=== PATIENT | female | born 1935 | race Caucasian/White ===

== ENCOUNTER 2017-10-19 06:27 | Inpatient (IN) | payer OTHER ==
--- NOTE | 2017-10-19 07:17 | PDOC ---
History of Present Illness - General Chief Complaint: Cold Symptoms Stated Complaint: COUGH X 3 DAYS Time Seen by Provider: 10/19/17 07:11 History Source: Patient, Old Records Exam Limitations: No Limitations - History of Present Illness Initial Comments: 10/19/17 07:13 82 year old female with past medical history of hypertension, coronary disease status post stent presents to the emergency department for cough for one week. Patient denies any fevers or chills or chest pain short of breath. She does have report a productive cough that was initially clearish and started to come slightly darkish in color. The patient came from [facility] to be evaluated for rule out pneumonia. Past History - Past Medical History Allergies/Adverse Reactions: Allergies Allergy/AdvReac Type Severity Reaction Status Date / Time Antihistamines - Ethanolamine Allergy Verified 10/19/17 06:32 Penicillins Allergy Verified 10/19/17 06:32 sulfur [From Sulfur-8] Allergy Verified 10/19/17 06:32 Home Medications: Ambulatory Orders Atorvastatin Ca [Lipitor] 10 mg PO HS 08/29/16 Candesartan Cilexetil [Atacand -] 4 mg PO DAILY 08/29/16 Clopidogrel Bisulfate [Plavix -] 75 mg PO DAILY 08/29/16 Meclizine HCl [Antivert -] 12.5 - 25 mg PO TID PRN #20 tablet 08/29/16 Metoprolol Succinate [Toprol XL -] 25 mg PO DAILY 08/29/16 Cancer: Yes (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 HEAD, EYES, EARS, NOSE AND THROAT: No change in vision. No ear pain or discharge. No sore throat. CARDIOVASCULAR: No chest pain or shortness of breath. RESPIRATORY: No wheezing, or hemoptysis. +cough GASTROINTESTINAL: No abdominal pain, nausea, vomiting, diarrhea, or decreased PO intolerance. GENITOURINARY: No dysuria, frequency, or change in urination. MUSCULOSKELETAL: No joint or muscle swelling or pain. No neck or back pain. SKIN: No rash NEUROLOGIC: No headache, vertigo, loss of consciousness, or change in strength/ sensation. ENDOCRINE: No increased thirst. No abnormal weight change. HEMATOLOGIC/LYMPHATIC: No anemia, easy bleeding, or history of blood clots. ALLERGIC/IMMUNOLOGIC: No hives or skin allergy. *Physical Exam - Vital Signs Last Vital Signs Temp Pulse Resp BP Pulse Ox 99 F 83 18 145/82 99 10/19/17 06:35 10/19/17 06:35 10/19/17 06:35 10/19/17 06:35 10/19/17 06:35 - Physical Exam Comments: 10/19/17 07:17 GENERAL: Awake, alert, and fully oriented, in no acute distress. HEAD: No signs of trauma EYES: PERRLA, EOMI, sclera anicteric, conjunctiva clear ENT: Auricles normal inspection, hearing grossly normal, nares patent, oropharynx clear without exudates. NECK: Normal ROM, supple, no lymphadenopathy, JVD, or masses LUNGS: Breath sounds equal, clear to auscultation bilaterally. No wheezes, and no crackles. Coughing throughout the exam. HEART: Regular rate and rhythm, normal S1 and S2, no murmurs, rubs or gallops ABDOMEN: Soft, nontender, normoactive bowel sounds. No guarding, no rebound. No masses EXTREMITIES: Normal range of motion, no edema. No clubbing or cyanosis. No cords, erythema, or tenderness NEUROLOGICAL: Cranial nerves II through XII grossly intact. Normal speech, normal gait SKIN: Warm, Dry, normal turgor, no rashes or lesions noted. Heart Score/ECG Review #1 ECG reviewed & interpreted by me at: 08:20 10/19/17 08:22 NSR 87, LAFB, no std/raegan, QTC 418 msec ED Treatment Course - LABORATORY CBC & Chemistry Diagram: 10/19/17 08:21 10/19/17 08:21 - RADIOLOGY Radiology Studies Ordered: Category Date Time Status CHEST PA & LAT [RAD] Stat Radiology 10/19/17 07:11 Ordered Medical Decision Making - Medical Decision Making 10/19/17 07:17 Vital Signs Temp Pulse Resp BP Pulse Ox 99 F 83 18 145/82 99 10/19/17 06:35 10/19/17 06:35 10/19/17 06:35 10/19/17 06:35 10/19/17 06:35 The patient is overall well-appearing and nontoxic-appearing. Differential includes viral syndrome versus bronchitis. We'll however, need to rule out pneumonia. Chest x-ray, labs and reassess. 10/19/17 08:45 CBC, BMP 10/19/17 08:21 10/19/17 08:21 CMP Sodium 127 mmol/L (136-145) L 10/19/17 08:21 Potassium 4.1 mmol/L (3.5-5.1) 10/19/17 08:21 Chloride 93 mmol/L (98-107) L 10/19/17 08:21 Carbon Dioxide 25 mmol/L (22-28) 10/19/17 08:21 Anion Gap 9 (8-16) 10/19/17 08:21 BUN 15 mg/dl (7-18) 10/19/17 08:21 Creatinine 0.7 mg/dl (0.6-1.3) 10/19/17 08:21 Creat Clearance w eGFR > 60 (>60) 10/19/17 08:21 Random Glucose 98 mg/dl (74-106) 10/19/17 08:21 Calcium 9.1 mg/dl (8.4-10.2) 10/19/17 08:21 Total Bilirubin 1.1 mg/dl (0.2-1.0) H 10/19/17 08:21 AST 23 U/L (10-42) 10/19/17 08:21 ALT 17 U/L (10-40) 10/19/17 08:21 Alkaline Phosphatase 54 U/L (32-92) 10/19/17 08:21 Total Protein 6.6 g/dl (6.4-8.3) 10/19/17 08:21 Albumin 3.6 g/dl (3.5-5.0) 10/19/17 08:21 Chest xray reviewed: Right lower lobe infiltrate Patient's symptoms are consistent with Pneumonia PORT score: Risk Class IV, 8.2-9.3% mortality. Hospitalization recommended based on risk. Given allergy to penicillin and sulfa, will initiate levaquin. Blood cultures ordered and obtained. 10/19/17 09:06 I had updated patient's son Lewis Mayahue [phone], who is a physician. He is aware and agreeable to our plan for admission. 10/19/17 09:[address] Mooney. Accepted to med/surg admission. *DC/Admit/Observation/Transfer Diagnosis at time of Disposition: Pneumonia Qualifiers: Pneumonia type: due to unspecified organism Laterality: right Lung location: lower lobe of lung Qualified Code(s): J18.1 - Lobar pneumonia, unspecified organism - Discharge Dispostion Condition at time of disposition: Stable Admit: Yes - Referrals - Patient Instructions - Post Discharge Activity
[2017-10-19] MEDS ORDERED: LEVOFLOXACIN 500 MG IVPB 500 MG/100 ML BAG IVPB ONE ×2 (08:06→08:25)
[2017-10-19 08:27] LABS: BASO % 0.3 % (0-2.0); EOS % 0.2 % (0-4.5); MCH 30.7 pg (25.7-33.7); MCHC 33.5 g/dl (32.0-36.0); MEAN CELL VOLUME 91.8 fl (80-96); MEAN PLT VOLUME 7.9 fl (7.5-11.1); NEUT % 78.8 % (42.8-82.8); PLATELET COUNT 295 K/MM3 (134-434); WHITE BLOOD COUNT 11.8 K/mm3 (4.0-10.8)
[2017-10-19] MEDS ORDERED: LEVOFLOXACIN 750 MG IVPB 750 MG/150 ML BAG IVPB ONE ×2 (08:27)
[2017-10-19 08:42] LABS: ALBUMIN 3.6 g/dl (3.5-5.0); ALK PHOS 54 U/L (32-92); ANION GAP 9 (8-16); BILIRUBIN,TOTAL 1.1 mg/dl (0.2-1.0); CALCIUM 9.1 mg/dl (8.4-10.2); CO2 25 mmol/L (22-28); CREATININE 0.7 mg/dl (0.6-1.3); GLUCOSE,RANDOM 98 mg/dl (74-106); SGOT/AST 23 U/L (10-42); SGPT/ALT 17 U/L (10-40); TOT PROT 6.6 g/dl (6.4-8.3)
[2017-10-19 09:00] LABS: ACTIVATED PTT 28.6 SECONDS (24.0-38.9)
[2017-10-19 09:05] LABS: INR 1.29 (0.82-1.09); PROTHROMBIN TIME (PATIENT) 14.4 SEC (10.2-13.0)
--- NOTE | 2017-10-19 10:32 | HP ---
CHIEF COMPLAINT:cough PCP: [facility] HISTORY OF PRESENT ILLNESS: 82yo F with PMH NHL s/p chemo and Rtx (completed 2007) and CAD s/p stent presented to the ER wtih productive cough x5 days. Initially was clear sputum and turned to grayish yesterday. assoc with subjective fevers (took temp at home was 100) and rhinorhea. no other assoc symptoms. lives in assisted living so always has sick contacts. denies CP, SOB, chills, night sweats, N/V/C/D, sinus tenderness, ear fullness or ringing in the ears ambulates with cane ER course was notable for: (1) (2) (3) Recent Travel:none PAST MEDICAL HISTORY:as above PAST SURGICAL HISTORY:as above Social History: Smoking:denies Alcohol:1 glass/month Drugs: denies Family History:not contributory Allergies Antihistamines - Ethanolamine Allergy (Verified 10/19/17 06:32) Penicillins Allergy (Verified 10/19/17 06:32) sulfur [From Sulfur-8] Allergy (Verified 10/19/17 06:32) HOME MEDICATIONS: Home Medications Medication Instructions Recorded Atorvastatin Ca [Lipitor] 10 mg PO HS 08/29/16 Candesartan Cilexetil [Atacand -] 16 mg PO DAILY 08/29/16 Clopidogrel Bisulfate [Plavix -] 75 mg PO DAILY 08/29/16 Ascorbic Acid [Vitamin C] 1,000 mg PO DAILY 10/19/17 Aspirin 81 mg PO DAILY 10/19/17 Cholecalciferol (Vitamin D3) 2,000 unit PO DAILY 10/19/17 [Vitamin D] Metoprolol Tartrate 12.5 mg PO BID 10/19/17 REVIEW OF SYSTEMS CONSTITUTIONAL: fever Absent: , chills, diaphoresis, generalized weakness, malaise, loss of appetite, weight change HEENT: Absent: rhinorrhea, nasal congestion, throat pain, throat swelling, difficulty swallowing, mouth swelling, ear pain, eye pain, visual changes CARDIOVASCULAR: Absent: chest pain, syncope, palpitations, irregular heart rate, lightheadedness , peripheral edema RESPIRATORY: cough, Absent: shortness of breath, dyspnea with exertion, orthopnea, wheezing, stridor, hemoptysis GASTROINTESTINAL: Absent: abdominal pain, abdominal distension, nausea, vomiting, diarrhea, constipation, melena, hematochezia GENITOURINARY: Absent: dysuria, frequency, urgency, hesitancy, hematuria, flank pain, genital pain MUSCULOSKELETAL: Absent: myalgia, arthralgia, joint swelling, back pain, neck pain SKIN: Absent: rash, itching, pallor HEMATOLOGIC/IMMUNOLOGIC: Absent: easy bleeding, easy bruising, lymphadenopathy, frequent infections ENDOCRINE: Absent: unexplained weight gain, unexplained weight loss, heat intolerance, cold intolerance NEUROLOGIC: Absent: headache, focal weakness or paresthesias, dizziness, unsteady gait, seizure, mental status changes, bladder or bowel incontinence PSYCHIATRIC: Absent: anxiety, depression, suicidal or homicidal ideation, hallucinations. PHYSICAL EXAMINATION Vital Signs - 24 hr 10/19/17 06:35 Temperature 99 F Pulse Rate 83 Respiratory 18 Rate Blood Pressure 145/82 O2 Sat by Pulse 99 Oximetry (%) GENERAL: Awake, alert, and fully oriented, in no acute distress. HEAD: Normal with no signs of trauma. EYES: Pupils equal, round and reactive to light, extraocular movements intact, sclera anicteric, conjunctiva clear. No lid lag. EARS, NOSE, THROAT: Ears normal, nares patent, oropharynx clear without exudates. Moist mucous membranes. no sinus tenderness. no pharynx erythema or exudate NECK: Normal range of motion, supple without lymphadenopathy, JVD, or masses. LUNGS: decreased breath sounds R base. Breath sounds equal, clear to auscultation bilaterally. No wheezes, and no crackles. No accessory muscle use. HEART: Regular rate and rhythm, normal S1 and S2 without murmur, rub or gallop. ABDOMEN: Soft, nontender, not distended, normoactive bowel sounds, no guarding, no rebound, no masses. No hepatomegaly or splenomegaly. MUSCULOSKELETAL: Normal range of motion at all joints. No bony deformities or tenderness. No CVA tenderness. UPPER EXTREMITIES: 2+ pulses, warm, well-perfused. No cyanosis. No clubbing. No peripheral edema. LOWER EXTREMITIES: 2+ pulses, warm, well-perfused. No calf tenderness. No peripheral edema. LLE soft swelling above medial malleoulus. soft NEUROLOGICAL: Cranial nerves II-XII intact. Normal speech. Normal gait. PSYCHIATRIC: Cooperative. Good eye contact. Appropriate mood and affect. SKIN: Warm, dry, normal turgor, no rashes or lesions noted, normal capillary refill. Laboratory Results - last 24 hr 10/19/17 10/19/17 10/19/17 08:21 08:21 08:21 WBC 11.8 H RBC 4.23 Hgb 13.0 Hct 38.9 MCV 91.8 MCH 30.7 MCHC 33.5 RDW 12.0 Plt Count 295 MPV 7.9 Neutrophils % 78.8 Lymphocytes % 8.7 Monocytes % 12.0 H Eosinophils % 0.2 Basophils % 0.3 PT with INR 14.4 H INR 1.29 H PTT (Actin FS) 28.6 Sodium 127 L Potassium 4.1 Chloride 93 L Carbon Dioxide 25 Anion Gap 9 BUN 15 Creatinine 0.7 Creat Clearance w eGFR > 60 Random Glucose 98 Lactic Acid Calcium 9.1 Total Bilirubin 1.1 H AST 23 ALT 17 Alkaline Phosphatase 54 Troponin I Total Protein 6.6 Albumin 3.6 10/19/17 10/19/17 08:21 08:21 WBC RBC Hgb Hct MCV MCH MCHC RDW Plt Count MPV Neutrophils % Lymphocytes % Monocytes % Eosinophils % Basophils % PT with INR INR PTT (Actin FS) Sodium Potassium Chloride Carbon Dioxide Anion Gap BUN Creatinine Creat Clearance w eGFR Random Glucose Lactic Acid 0.8 Calcium Total Bilirubin AST ALT Alkaline Phosphatase Troponin I < 0.03 L Total Protein Albumin CXR RLL infiltrate ASSESSMENT/PLAN: 82yo F with PMH HTN, CAD s/p stent, presented with productive cough 1. RLL PNA- medicine admission. high Curb score. started on Levaquin 500mg IV. will cont additional 24H. supplemental oxygen as needed to maintain spO2 >90% check ulegionella, strep, Cx 2. Hyponatremia- likely dehydration. check ulegionella. give gentle hydration. 3. CAD s/p stent- no signs of acs. cont asa/plavix/metoprolol/statin 4. NHL- s/p chemo and Rtx. has LLE mass soft, stable per pt 5. HTN- above goal. re-start metoprolol. will re-start acei if remains elevated , NF here will need to start similiar agent. titrate as needed to optimize BP. 6. DVT ppx- lovenox 7. case spoke with son present at bedside. all questions answered. verbalized understanding and agreement with plan Visit type - Emergency Visit Emergency Visit: Yes ED Registration Date: 10/19/17 Care time: The patient presented to the Emergency Department on the above date and was hospitalized for further evaluation of their emergent condition. - New Patient This patient is new to me today: No - Critical Care Critical Care patient: No
[2017-10-19] MEDS ORDERED: ACETAMINOPHEN 325 MG TABLET (FP) PO PRN (10:34)
[2017-10-19] MEDS ORDERED: METOPROLOL SUCCINATE 25 MG TAB.SR.24H (FP) PO SCH (10:45)
[2017-10-19] MEDS ORDERED: SODIUM CHLORIDE 1,000 ML IV SCH (10:45)
[2017-10-19] MEDS ORDERED: CLOPIDOGREL BISULFATE 75 MG TABLET (FP) PO SCH (10:45)
[2017-10-19 12:03] VITALS: BMI 20.9
[2017-10-19] MEDS: ENOXAPARIN NA (PORCINE) 40 MG/0.4 ML DISP.SYRIN SQ SCH (12:47)
[2017-10-19] MEDS: ASPIRIN 81 MG CHEWABLE TABLETS PO SCH ×3 (12:48→21:10)
[2017-10-19] MEDS: METOPROLOL SUCCINATE 25 MG TAB.SR.24H (FP) PO ONE ×2 (12:50→17:51)
[2017-10-19 14:31] LABS: URINE BILIRUBIN Negative (NEGATIVE); URINE GLUCOSE (UA) Negative (NEGATIVE); URINE KETONE Trace (NEGATIVE); URINE NITRITE Negative (NEGATIVE); URINE PROTEIN Negative (NEGATIVE); URINE UROBILINOGEN 0.2 (0.2-1.0)
[2017-10-19 14:32] LABS: URINE APPEARANCE CLOUDY; URINE BLOOD 1+ (NEGATIVE); URINE COLOR AMBER; URINE LEUK ESTERASE 2+ (NEGATIVE)
[2017-10-19 14:52] LABS: URINE WBC 50-80 (0-5)
[2017-10-19 17:02] LABS: MONO # 1.4 #; NEUT # 9.4 # (42.8-82.8)
[2017-10-19] MEDS: ATORVASTATIN CA 10 MG TABLET (FP) PO SCH (21:10)
[2017-10-19] MEDS: METOPROLOL SUCCINATE 25 MG TAB.SR.24H (FP) PO SCH (21:10)
[2017-10-19] MEDS: CLOPIDOGREL BISULFATE 75 MG TABLET (FP) PO SCH (21:10)
[2017-10-20] MEDS: guaiFENesin 200 MG/10 ML 10 ML UNIT-DOSE CUPS PO PRN ×2 (01:49→21:17)
[2017-10-20 10:04] LABS: BASO % 0.2 % (0-2.0); MCH 31.2 pg (25.7-33.7); MCHC 33.2 g/dl (32.0-36.0); MEAN CELL VOLUME 93.9 fl (80-96); MEAN PLT VOLUME 7.6 fl (7.5-11.1); NEUT % 78.3 % (42.8-82.8); PLATELET COUNT 302 K/MM3 (134-434); RDW 12.1 % (11.6-15.6); WHITE BLOOD COUNT 13.7 K/mm3 (4.0-10.8)
[2017-10-20] MEDS: ASCORBIC ACID 500 MG TABLET (FP) PO SCH (10:11)
[2017-10-20] MEDS: METOPROLOL SUCCINATE 25 MG TAB.SR.24H (FP) PO SCH ×2 (10:13→21:17)
[2017-10-20] MEDS: ENOXAPARIN NA (PORCINE) 40 MG/0.4 ML DISP.SYRIN SQ SCH (10:15)
[2017-10-20 10:20] LABS: ANION GAP 10 (8-16); CALCIUM 8.4 mg/dl (8.4-10.2); CO2 22 mmol/L (22-28); CREATININE 0.7 mg/dl (0.6-1.3); GLUCOSE,RANDOM 81 mg/dl (74-106)
[2017-10-20 10:25] LABS: LYMPH # 1.4 # (8-40); MONO # 1.6 #; NEUT # 10.7 # (42.8-82.8)
[2017-10-20] MEDS: LEVOFLOXACIN 500 MG IVPB 500 MG/100 ML BAG IVPB SCH (10:39)
[2017-10-20] MEDS ORDERED: BENZOCAINE/MENTH/CETYLPYRD CL 1 EACH LOZENGE MM PRN (11:37)
--- NOTE | 2017-10-20 11:41 | PN ---
Physical Exam: SUBJECTIVE: Patient seen and examined Reports feeling better,in frequent cough with yellow/galloway sputum, denies cp sob or palpitations. OBJECTIVE: Vital Signs Period Temp Pulse Resp BP Sys/Fuentes Pulse Ox Last 24 Hr 98.6 F-100 F 83-88 18-18 124-138/56-68 92-96 GENERAL: The patient is awake, alert, and fully oriented, in no acute distress. HEAD: Normal with no signs of trauma. NECK: Trachea midline, full range of motion, supple. LUNGS: Breath sounds equal, ronchi, no wheezing, no accessory muscle use. HEART: Regular rate and rhythm, S1, S2 without murmur, rub or gallop. ABDOMEN: Soft, nontender, nondistended, normoactive bowel sounds, no guarding, no rebound, no hepatosplenomegaly, no masses. EXTREMITIES: 2+ pulses, warm, well-perfused, no edema. LLE mass soft, NEUROLOGICAL: Cranial nerves II through XII grossly intact. Normal speech, gait not observed. PSYCH: Normal mood, normal affect. SKIN: Warm, dry, normal turgor, no rashes or lesions noted Laboratory Results - last 24 hr 10/19/17 10/19/17 10/20/17 08:21 14:29 06:08 WBC 13.7 H RBC 3.96 Hgb 12.3 Hct 37.1 MCV 93.9 MCH 31.2 MCHC 33.2 RDW 12.1 Plt Count 302 MPV 7.6 Neutrophils % 78.3 Lymphocytes % 10.1 Monocytes % 11.4 H Eosinophils % 0.0 D Basophils % 0.2 Sodium Potassium Chloride Carbon Dioxide Anion Gap BUN Creatinine Random Glucose Lactic Acid 0.8 Calcium Urine Color Maddy Urine Appearance Cloudy Urine pH 7.0 Ur Specific [place] 1.010 Urine Protein Negative Urine Glucose (UA) Negative Urine Ketones Trace Urine Blood 1+ H Urine Nitrite Negative Urine Bilirubin Negative Urine Urobilinogen 0.2 Ur Leukocyte Esterase 2+ H Urine RBC 3-5 Urine WBC 50-80 Ur Epithelial Cells Rare 10/20/17 06:08 WBC RBC Hgb Hct MCV MCH MCHC RDW Plt Count MPV Neutrophils % Lymphocytes % Monocytes % Eosinophils % Basophils % Sodium 130 L Potassium 3.9 Chloride 98 Carbon Dioxide 22 Anion Gap 10 BUN 11 D Creatinine 0.7 Random Glucose 81 Lactic Acid Calcium 8.4 Urine Color Urine Appearance Urine pH Ur Specific [place] Urine Protein Urine Glucose (UA) Urine Ketones Urine Blood Urine Nitrite Urine Bilirubin Urine Urobilinogen Ur Leukocyte Esterase Urine RBC Urine WBC Ur Epithelial Cells Active Medications Generic Name Dose Route Start Last Admin Trade Name Freq PRN Reason Stop Dose Admin Acetaminophen 650 mg 10/19/17 10:34 Tylenol - PO Q4H PRN FEVER OR PAIN Albuterol/Ipratropium 1 amp 10/20/17 14:00 Duoneb - NEB TIDR MARLINE Ascorbic Acid 1,000 mg 10/20/17 10:00 10/20/17 10:11 Vitamin C - PO 1,000 mg DAILY MARLINE Administration Aspirin 81 mg 10/19/17 22:00 10/19/17 21:10 Asa - PO 81 mg HS MARLINE Administration Atorvastatin Calcium 10 mg 10/19/17 22:00 10/19/17 21:10 Lipitor - PO 10 mg HS MARLINE Administration Clopidogrel Bisulfate 75 mg 10/19/17 22:00 10/19/17 21:10 Plavix - PO 75 mg HS MARLINE Administration Enoxaparin Sodium 40 mg 10/19/17 10:45 10/20/17 10:15 Lovenox - SQ 40 mg DAILY MARLINE Administration Guaifenesin 10 ml 10/20/17 01:30 10/20/17 01:49 Robitussin - PO 10 ml Q6H PRN Administration COUGH Levofloxacin 500 mg in 100 mls @ 100 mls/hr 10/20/17 10:45 10/20/17 10:39 Levaquin 500 Mg Premixed Ivpb - IVPB 100 mls/hr ONCE MARLINE Administration Metoprolol Succinate 12.5 mg 10/19/17 22:00 10/20/17 10:13 Toprol Xl - PO 12.5 mg BID MARLINE Administration * Imaging CXR RLL infiltrate BC preliminary negative Influenza ruled out Urine culture pending ASSESSMENT/PLAN: This is an 82yo F with PMH NHL s/p chemo and Rtx (completed 2007) and CAD s/p stent presented to the ER wtih productive cough x5 days. Admitted with pneumonia. *RLL PNA-laryngitis - will cont on Levaquin - afebrile, with mild leukocytosis - BC preliminary negative - flu ruled out -ordered Cepacol Lozenges -will cont on Neb tx - encouraged to use incentive Spirometer - OOB and ambulate as tolerated - O2 PRN - will Rpt cxr in am - r/o strep throat - f/u on urine legionella *Hyponatremia- likely due to dehydration. - Na improving Na 127.130 - will cont on IV hydration * CAD s/p stent- no signs of acs - will cont asa/plavix/metoprolol/statin * NHL- s/p chemo and Rtx. -has LLE mass soft, stable per pt - out pt hem/onc f/u *HTN-BP controlled - will cont on BB, Atacand ( NF) - will monitor BP closely, if BP goes up will start on similar agent ARB *DVT ppx- lovenox * F/E/N: Will cont on IVF and Heart healthy diet Updated plan of care with son via phone. Dispo: Anticipate DC back to [facility] in 1-2 days. Visit type - Emergency Visit Emergency Visit: Yes ED Registration Date: 10/19/17 Care time: The patient presented to the Emergency Department on the above date and was hospitalized for further evaluation of their emergent condition. - New Patient This patient is new to me today: Yes Date on this admission: 10/20/17 - Critical Care Critical Care patient: No
[2017-10-20] MEDS: ALBUTEROL SO4 2.5/IPRATROPIUM 0.5 INH SOL 3 ML VIAL.NEB. NEB SCH ×2 (15:05→21:17)
[2017-10-20 20:26] LABS: MAGNESIUM 1.9 mg/dL (1.8-2.4); PHOSPHOROUS 2.5 mg/dl (2.5-4.6)
[2017-10-20] MEDS: ATORVASTATIN CA 10 MG TABLET (FP) PO SCH (21:16)
[2017-10-20] MEDS: ASPIRIN 81 MG CHEWABLE TABLETS PO SCH (21:16)
[2017-10-20] MEDS: CLOPIDOGREL BISULFATE 75 MG TABLET (FP) PO SCH (21:17)
[2017-10-21] MEDS: ALBUTEROL SO4 2.5/IPRATROPIUM 0.5 INH SOL 3 ML VIAL.NEB. NEB SCH ×3 (06:38→21:33)
[2017-10-21] MEDS ORDERED: REFRIGERATED ANITBIOTICS ONE ×2 (09:32→11:15)
[2017-10-21] MEDS: ENOXAPARIN NA (PORCINE) 40 MG/0.4 ML DISP.SYRIN SQ SCH (09:35)
[2017-10-21] MEDS: ASCORBIC ACID 500 MG TABLET (FP) PO SCH (09:35)
[2017-10-21] MEDS: METOPROLOL SUCCINATE 25 MG TAB.SR.24H (FP) PO SCH ×2 (09:35→21:30)
[2017-10-21 10:01] LABS: BASO % 0.2 % (0-2.0); EOS % 0.1 % (0-4.5); MCH 31.1 pg (25.7-33.7); MCHC 33.9 g/dl (32.0-36.0); MEAN CELL VOLUME 91.7 fl (80-96); MEAN PLT VOLUME 7.9 fl (7.5-11.1); NEUT % 77.3 % (42.8-82.8); PLATELET COUNT 310 K/MM3 (134-434); RDW 11.9 % (11.6-15.6); WHITE BLOOD COUNT 11.3 K/mm3 (4.0-10.8)
[2017-10-21 10:16] LABS: ANION GAP 9 (8-16); CALCIUM 8.2 mg/dl (8.4-10.2); CO2 22 mmol/L (22-28); CREATININE 0.7 mg/dl (0.6-1.3); GLUCOSE,RANDOM 88 mg/dl (74-106)
[2017-10-21] MEDS ORDERED: PT OWN MED DRAWER 7, Y5N ONE (11:15)
[2017-10-21] MEDS: LEVOFLOXACIN 500 MG IVPB 500 MG/100 ML BAG IVPB SCH (11:24)
--- NOTE | 2017-10-21 12:17 | EKG ---
Test Reason : Blood Pressure : / mmHG Vent. Rate : 087 BPM Atrial Rate : 087 BPM P-R Int : 118 ms QRS Dur : 082 ms QT Int : 348 ms P-R-T Axes : 077 -52 070 degrees QTc Int : 418 ms SINUS RHYTHM WITH PREMATURE ATRIAL COMPLEXES LEFT ANTERIOR FASCICULAR BLOCK ABNORMAL ECG NO PREVIOUS ECGS AVAILABLE Confirmed by ALANA CLEMENTS MD ([id number] on 10/21/2017 12:16:52 PM Referred By: PARADISE DUNHAM Confirmed By:ALANA CLEMENTS MD
--- NOTE | 2017-10-21 12:58 | PN ---
Physical Exam: SUBJECTIVE: Patient seen and examined oob to chair. Son present. Voices no complaints. OBJECTIVE: Vital Signs Period Temp Pulse Resp BP Sys/Fuentes Pulse Ox Last 24 Hr 98 F-99.2 F 78-100 18-18 104-130/53-62 97-98 GENERAL: The patient is awake, alert, and fully oriented, in no acute distress. LUNGS: Breath CTA HEART: Regular rate and rhythm, S1, S2 without murmur, rub or gallop. ABDOMEN: Soft, nontender, nondistended, normoactive bowel sounds, no guarding, no rebound EXTREMITIES: 2+ pulses, warm, well-perfused, no edema. NEUROLOGICAL: Cranial nerves II through XII grossly intact. Normal speech, gait not observed. Laboratory Results - last 24 hr 10/19/17 10/20/17 10/21/17 08:21 06:00 06:00 WBC RBC Hgb Hct MCV MCH MCHC RDW Plt Count MPV Neutrophils % Lymphocytes % Monocytes % Eosinophils % Basophils % Sodium 129 L Potassium 3.9 Chloride 98 Carbon Dioxide 22 Anion Gap 9 BUN 13 Creatinine 0.7 Random Glucose 88 Lactic Acid 0.8 Calcium 8.2 L Phosphorus 2.5 Magnesium 1.9 D 10/21/17 06:00 WBC 11.3 H RBC 3.87 Hgb 12.1 Hct 35.5 MCV 91.7 MCH 31.1 MCHC 33.9 RDW 11.9 Plt Count 310 MPV 7.9 Neutrophils % 77.3 Lymphocytes % 10.2 Monocytes % 12.2 H Eosinophils % 0.1 D Basophils % 0.2 Sodium Potassium Chloride Carbon Dioxide Anion Gap BUN Creatinine Random Glucose Lactic Acid Calcium Phosphorus Magnesium Active Medications Generic Name Dose Route Start Last Admin Trade Name Freq PRN Reason Stop Dose Admin Acetaminophen 650 mg 10/19/17 10:34 10/21/17 09:36 Tylenol - PO 650 mg Q4H PRN Administration FEVER OR PAIN Albuterol/Ipratropium 1 amp 10/20/17 14:00 10/21/17 06:38 Duoneb - NEB 1 amp TIDR MARLINE Administration Ascorbic Acid 1,000 mg 10/20/17 10:00 10/21/17 09:35 Vitamin C - PO 1,000 mg DAILY MARLINE Administration Aspirin 81 mg 10/19/17 22:00 10/20/17 21:16 Asa - PO 81 mg HS MARLINE Administration Atorvastatin Calcium 10 mg 10/19/17 22:00 10/20/17 21:16 Lipitor - PO 10 mg HS MARLINE Administration Benzocaine/Menthol 1 each 10/20/17 11:37 10/20/17 20:37 Cepacol Lozenge - MM 1 each PRN PRN Administration SORE THROAT Clopidogrel Bisulfate 75 mg 10/19/17 22:00 10/20/17 21:17 Plavix - PO 75 mg HS MARLNIE Administration Enoxaparin Sodium 40 mg 10/19/17 10:45 10/21/17 09:35 Lovenox - SQ 40 mg DAILY MARLINE Administration Guaifenesin 10 ml 10/20/17 01:30 10/20/17 21:17 Robitussin - PO 10 ml Q6H PRN Administration COUGH Levofloxacin 500 mg in 100 mls @ 100 mls/hr 10/20/17 10:45 10/21/17 11:24 Levaquin 500 Mg Premixed Ivpb - IVPB 100 mls/hr ONCE MARLINE Administration Metoprolol Succinate 12.5 mg 10/19/17 22:00 10/21/17 09:35 Toprol Xl - PO 12.5 mg BID MARLINE Administration ASSESSMENT/PLAN: 82 year-old female with a H significant non-Hodgkins lymphoma s/p chemo and radiation therapy (completed 2007), and CAD s/p stent. Admitted for RLL pneumonia and hyponatremia. RLL pneumonia --low-grade fever, mild leukocytosis --CXR today shows worsening RLL markings, but clinically improved --continue levofloxacin (day #2) --ID following Hyponatremia --FeNa 0.1%, pre renal --NS @ 50mL/hr --hold atacand as possibly contributing to hyponatremia; monitor BP Non-Hodgkins lymphoma --stable CAD s/p stent --continue ASA, Plavix, Lipitor, Toprol XL FEN Fluids: NS @ 50mL/hr Electrolytes: replete as indicated Nutrition: regular diet DVT prophylaxis: lovenox Physical therapy evaluation Dispo: continues to require inpatient care. Full code. Visit type - Emergency Visit Emergency Visit: Yes ED Registration Date: 10/19/17 Care time: The patient presented to the Emergency Department on the above date and was hospitalized for further evaluation of their emergent condition. - New Patient This patient is new to me today: Yes Date on this admission: 10/21/17 - Critical Care Critical Care patient: No
[2017-10-21 14:34] LABS: URINE APPEARANCE Clear; URINE BILIRUBIN Negative (NEGATIVE); URINE BLOOD Negative (NEGATIVE); URINE COLOR YELLOW; URINE GLUCOSE (UA) Negative (NEGATIVE); URINE KETONE 1+ (NEGATIVE); URINE LEUK ESTERASE TRACE (NEGATIVE); URINE NITRITE Negative (NEGATIVE); URINE PROTEIN 1+ (NEGATIVE)
[2017-10-21 15:07] LABS: URINE RBC 0-2 /hpf (0-3)
--- NOTE | 2017-10-21 15:10 | PN ---
Progress Note (short form) - Note Progress Note: ID consult dictated imp/reccd 82 year old female with Right basilar infiltrate she reports feeling better with less cough and less weakness, resolution of fever ambulating in the halls Right lower lobe infiltrate pen/sulfa allergy- unknown reactions- she states she is allergic to everything clinically improving suggest continuing levaquin- suspect cxray is radiographic lag and she is clinically better ?atypical with hyponatremia await legionella urinary antigen pen/sulfa allergies noted Problem List - Problems (1) Pneumonia Code(s): J18.9 - PNEUMONIA, UNSPECIFIED ORGANISM Qualifiers: Pneumonia type: due to unspecified organism Laterality: right Lung location: lower lobe of lung Qualified Code(s): J18.1 - Lobar pneumonia, unspecified organism (2) Hyponatremia Code(s): E87.1 - HYPO-OSMOLALITY AND HYPONATREMIA (3) Allergy to multiple antibiotics Code(s): Z88.1 - ALLERGY STATUS TO OTHER ANTIBIOTIC AGENTS STATUS
[2017-10-21 15:26] LABS: LYMPH # 1.1 # (8-40); MONO # 1.4 #; NEUT # 8.8 # (42.8-82.8)
[2017-10-21] MEDS ORDERED: SODIUM CHLORIDE 1,000 ML IV SCH (15:30)
--- NOTE | 2017-10-21 19:48 | CONS ---
DATE OF CONSULTATION: DATE OF DICTATION: 10/21/2017 REQUESTED BY: Hospitalist Service This is an 82-year-old woman who lives independently at the [facility]. She has been living there for the last 2-3 years. She has a history of hypertension, coronary artery disease, lymphoma that has been treated in the past. She developed a productive cough about a week ago that became slightly dark in color. She felt weak. She requested evaluation at the hospital and was sent to the hospital on the . On arrival, she was found to have a low-grade fever of 100 and she was found to have a right lower lobe pneumonia and to be hyponatremic. She was started on Levaquin. I was asked to see her for further evaluation. She reports her cough is improved. It has become nonproductive. She is not short of breath. She has been ambulating in the [place]. She is afebrile and she is overall feeling better. PAST MEDICAL HISTORY: Notable for a history of hypertension, coronary artery disease, status post stent. She has a history of lymphoma in the past and was treated with chemotherapy and radiation therapy, which she completed in 2007. She reports having had sinus disease, for which she takes nothing. She has not been on any recent antibiotics. SOCIAL HISTORY: There is no history of any cigarette use. She rarely drinks alcohol. She lives in the [facility] on the independent side. She has 6 children and 10 grandchildren. There has been no recent travel. ALLERGIES: ETHANOLAMINE, PENICILLIN and SULFA. The nature of her allergies is unknown. MEDICATIONS AT HOME: Include atorvastatin, Atacand, Plavix, vitamin C, aspirin, vitamin D and metoprolol. She does not appear to be on any diuretics. REVIEW OF SYSTEMS: Notable for cough with brown sputum and fever and some nasal congestion, which she reported as feeling like sinusitis. PHYSICAL EXAMINATION:General: She is awake and alert. Vital Signs: Temperature is 98, pulse of 86, blood pressure 110/50, respiratory rate 16. She is saturating 98% on room air. HEENT: She is normocephalic. Her eyes are anicteric. She has no pharyngitis. She has no thrush. Neck: Supple. Lungs: On my exam, are clear to auscultation. Heart: Regular rate and rhythm. Abdomen: Soft, nontender. Extremities: Without edema. LABORATORY: Notable for a white count of 11.3, hemoglobin 12.1, platelets are 310. INR is 1.2. Sodium of 129 with a total bilirubin of 1.1; otherwise normal transaminases. A urinalysis with 4-6 white cells. Cultures are pending. Chest x-ray reveals a right basilar infiltrate. SUMMARY: This is an elderly woman who lives independently who I am asked to see for worsening infiltrate on x-ray. Though clinically she appears improved, I suspect the x-ray is lagging her clinical improvement. Her fevers have resolved. Her weakness is resolving and she has less cough. She is not hypoxic. I would suggest we continue her on Levaquin, given her PENICILLIN and SULFA allergies. Possibly, this is atypical pneumonia with the hyponatremia. Legionella antigen is still pending. Cultures are negative to date. Would work up her hyponatremia as well. I spoke to her son, who was with her. JES IZAGUIRRE M.D. [id number]
[2017-10-21] MEDS: ASPIRIN 81 MG CHEWABLE TABLETS PO SCH (21:29)
[2017-10-21] MEDS: CLOPIDOGREL BISULFATE 75 MG TABLET (FP) PO SCH (21:30)
[2017-10-21] MEDS: ATORVASTATIN CA 10 MG TABLET (FP) PO SCH (21:30)
[2017-10-22] MEDS ORDERED: METOPROLOL TARTRATE 25 MG TABLET (FP) PO ONE (00:10)
[2017-10-22] MEDS ORDERED: METOPROLOL TARTRATE 5 MG/5 ML VIAL IVPUSH ONE (00:10)
[2017-10-22] MEDS ORDERED: METOPROLOL TARTRATE 5 MG/5 ML VIAL ONE (00:16)
--- NOTE | 2017-10-22 00:17 | HOSP ---
Subjective - Review of Symptoms Events since last encounter: Nurse reports episodes tachycardia on monitor. Subjective: Pt denies chest pain, palpitations, SOB. Does report some lightheadedness. Cardiovascular: No: Chest Pain, Palpitations Physical Examination Vital Signs: Vital Signs Temperature 97.7 F 10/21/17 23:22 Pulse Rate 101 H 10/21/17 23:22 Respiratory Rate 17 10/21/17 23:22 Blood Pressure 133/96 10/21/17 23:56 O2 Sat by Pulse Oximetry (%) 100 10/21/17 21:29 Cardiovascular: Yes: Regular Rate and Rhythm Respiratory: Yes: Diminished. No: Rales, Rhonchi, Wheezes Gastrointestinal: Yes: WNL Labs: CBC, BMP 10/21/17 06:00 10/21/17 06:00 EC10/21/17 23:50 sinus tachycardia vent rate 106, QTC 411 Left axis deviation no acute ST/T changes Hospitalist Encounter Assessment: tachycardia - episodes lasting minutes of heart rate into 160s, occurs every few minutes , on rhythm strip appears to be SVT, not irregular - baseline heart rate when not in tachyarrythmia in low 100s. - DW cardiology Dr. Pierre - will give additional metoprolol, dc albuterol (pt not wheezing) as this may be a potential side effect.
[2017-10-22 01:41] LABS: OSMOLALITY,SERUM 276 mosm/kg (278-305)
--- NOTE | 2017-10-22 08:01 | PN ---
Physical Exam: SUBJECTIVE: Patient seen and examined, reports feeling tired, reports she was up at night with ongoing cough, one episode of SVT on the overnight, HR 170's converted to NSR after lopressor 5mg IV OBJECTIVE: patient is a 82 year-old female with a PMH significant non-Hodgkins lymphoma s/p chemo and radiation therapy (completed 2007), and CAD s/p stent. patient was Admitted for RLL pneumonia and hyponatremia. Vital Signs Period Temp Pulse Resp BP Sys/Fuentes Pulse Ox Last 24 Hr 97.7 F-98.8 F 77-160 16-19 104-133/50-96 97-100 GENERAL: The patient is awake, alert, and fully oriented, in no acute distress. HEAD: Normal with no signs of trauma. EYES: PERRL, extraocular movements intact, sclera anicteric, conjunctiva clear. No ptosis. ENT: Ears normal, nares patent, oropharynx clear without exudates, moist mucous membranes. NECK: Trachea midline, full range of motion, supple. LUNGS: Breath sounds equal, crackles noted to the right middle and lower lobe, clear to auscultation to left apex and base, no wheezes, no accessory muscle use. HEART: Regular rate and rhythm, S1, S2 without murmur, rub or gallop. ABDOMEN: Soft, nontender, nondistended, normoactive bowel sounds, no guarding, no rebound, no hepatosplenomegaly, no masses. EXTREMITIES: 2+ pulses, warm, well-perfused, right lower extremity +2 edema, left lower extremist +3 edema, chronic as per the patient NEUROLOGICAL: Cranial nerves II through XII grossly intact. Normal speech, gait not observed. PSYCH: Normal mood, normal affect. SKIN: Warm, dry, normal turgor, no rashes or lesions noted Laboratory Results - last 24 hr 10/19/17 10/21/17 10/21/17 08:21 06:00 06:00 WBC 11.3 H RBC 3.87 Hgb 12.1 Hct 35.5 MCV 91.7 MCH 31.1 MCHC 33.9 RDW 11.9 Plt Count 310 MPV 7.9 Neutrophils % 77.3 Lymphocytes % 10.2 Monocytes % 12.2 H Eosinophils % 0.1 D Basophils % 0.2 Sodium 129 L Potassium 3.9 Chloride 98 Carbon Dioxide 22 Anion Gap 9 BUN 13 Creatinine 0.7 Random Glucose 88 Serum Osmolality Lactic Acid 0.8 Calcium 8.2 L Urine Color Urine Appearance Urine pH Ur Specific [place] Urine Protein Urine Glucose (UA) Urine Ketones Urine Blood Urine Nitrite Urine Bilirubin Urine Urobilinogen Ur Leukocyte Esterase Urine RBC Urine WBC Ur Epithelial Cells Urine Osmolality Ur Random Sodium Urine Creatinine 10/21/17 10/21/17 10/21/17 14:00 15:30 15:30 WBC RBC Hgb Hct MCV MCH MCHC RDW Plt Count MPV Neutrophils % Lymphocytes % Monocytes % Eosinophils % Basophils % Sodium Potassium Chloride Carbon Dioxide Anion Gap BUN Creatinine Random Glucose Serum Osmolality 276 L Lactic Acid Calcium Urine Color Yellow Urine Appearance Clear Urine pH 6.0 Ur Specific [place] 1.015 Urine Protein 1+ H Urine Glucose (UA) Negative Urine Ketones 1+ H Urine Blood Negative Urine Nitrite Negative Urine Bilirubin Negative Urine Urobilinogen 1.0 Ur Leukocyte Esterase Trace H D Urine RBC 0-2 Urine WBC 4-6 Ur Epithelial Cells 3-5 Urine Osmolality 472 Ur Random Sodium 25 L Urine Creatinine 10/21/17 15:30 WBC RBC Hgb Hct MCV MCH MCHC RDW Plt Count MPV Neutrophils % Lymphocytes % Monocytes % Eosinophils % Basophils % Sodium Potassium Chloride Carbon Dioxide Anion Gap BUN Creatinine Random Glucose Serum Osmolality Lactic Acid Calcium Urine Color Urine Appearance Urine pH Ur Specific [place] Urine Protein Urine Glucose (UA) Urine Ketones Urine Blood Urine Nitrite Urine Bilirubin Urine Urobilinogen Ur Leukocyte Esterase Urine RBC Urine WBC Ur Epithelial Cells Urine Osmolality Ur Random Sodium Urine Creatinine 126.5 Active Medications Generic Name Dose Route Start Last Admin Trade Name Freq PRN Reason Stop Dose Admin Acetaminophen 650 mg 10/19/17 10:34 10/21/17 09:36 Tylenol - PO 650 mg Q4H PRN Administration FEVER OR PAIN Ascorbic Acid 1,000 mg 10/20/17 10:00 10/21/17 09:35 Vitamin C - PO 1,000 mg DAILY MARLINE Administration Aspirin 81 mg 10/19/17 22:00 10/21/17 21:29 Asa - PO 81 mg HS MARLINE Administration Atorvastatin Calcium 10 mg 10/21/17 22:00 10/21/17 21:30 Lipitor - PO 10 mg HS MARLINE Administration Benzocaine/Menthol 1 each 10/20/17 11:37 10/20/17 20:37 Cepacol Lozenge - MM 1 each PRN PRN Administration SORE THROAT Clopidogrel Bisulfate 75 mg 10/19/17 22:00 10/21/17 21:30 Plavix - PO 75 mg HS MARLINE Administration Enoxaparin Sodium 40 mg 10/19/17 10:45 10/21/17 09:35 Lovenox - SQ 40 mg DAILY MARLINE Administration Guaifenesin 10 ml 10/20/17 01:30 10/20/17 21:17 Robitussin - PO 10 ml Q6H PRN Administration COUGH Levofloxacin 500 mg in 100 mls @ 100 mls/hr 10/20/17 10:45 10/21/17 11:24 Levaquin 500 Mg Premixed Ivpb - IVPB 100 mls/hr ONCE MARLINE Administration Sodium Chloride 1,000 mls @ 150 mls/hr 10/21/17 15:30 10/21/17 19:09 Normal Saline - IV 150 mls/hr ASDIR MARLINE Administration Metoprolol Succinate 12.5 mg 10/19/17 22:00 10/21/17 21:30 Toprol Xl - PO 12.5 mg BID MARLINE Administration Microbiology 10/19/17 14:00 Urine - Urine Clean Catch Legionella Antigen - Final, negative 10/19/17 14:00 Urine - Urine Clean Catch Streptococcus pneumoniae Antigen ( M - Final, negative 10/19/17 08:00 Blood - Peripheral Venous Blood Culture - Preliminary NO GROWTH OBTAINED AFTER 72 HOURS, INCUBATION TO CONTINUE FOR 2 DAYS. 10/19/17 08:15 Blood - Peripheral Venous Blood Culture - Preliminary NO GROWTH OBTAINED AFTER 72 HOURS, INCUBATION TO CONTINUE FOR 2 DAYS. 10/19/17 14:29 Urine - Urine Clean Catch Urine Culture - Final Diphtheroid/Corynebacterium 10/19/17 08:21 Nasopharyngeal Swab Influenza Types A,B Antigen (MARLI) - Final 10/19/17 08:21 Nasopharyngeal Swab - Final IMAGING chest xray (10/19/17): right base increased lung markings chest xray (10/21/17): worsening of right lung infiltrate ASSESSMENT/PLAN: 1) pulmonary RLL pneumonia -pt is afebrile, no leukocytosis is noted - repeat chest xray ordered - blood and urine culture negative to date - continue levaquin (10/20/17 - ) - ID, Dr Pete consulted and following 2) cardiovascular SVT - one episode of SVT on the overnight, lopressor 5mg IV x 1 given, pt converted to NSR - continue lopressor 12.5mg BID - echo ordered - appreciate the input of support associate, Dr Colón CAD s/p stent - chart copy received from Dr Mejia (private support associate) echo 11/20/16 ef 68%, diastolic dysfunction, moderate TR - continue lipitor, asa, plavix 3) non-hodkins lymphoma - stable 4) Hyponatremia --FeNa 0.1%, pre renal --NS @ 50mL/hr --hold atacand as possibly contributing to hyponatremia; monitor BP Non-Hodgkins lymphoma --stable CAD s/p stent --continue ASA, Plavix, Lipitor, Toprol XL FEN Fluids: NS @ 50mL/hr Electrolytes: replete as indicated Nutrition: regular diet DVT prophylaxis: lovenox Physical therapy evaluation Dispo: continues to require inpatient care. Full code. Visit type - Emergency Visit Emergency Visit: Yes ED Registration Date: 10/19/17 Care time: The patient presented to the Emergency Department on the above date and was hospitalized for further evaluation of their emergent condition. - New Patient This patient is new to me today: Yes Date on this admission: 10/22/17 - Critical Care Critical Care patient: No - Discharge Referral Referred to [facility] Med P.C.: No
[2017-10-22 08:16] LABS: BASO % 0.2 % (0-2.0); EOS % 0.2 % (0-4.5); MCH 31.9 pg (25.7-33.7); MCHC 34.4 g/dl (32.0-36.0); MEAN CELL VOLUME 92.9 fl (80-96); MEAN PLT VOLUME 7.3 fl (7.5-11.1); PLATELET COUNT 346 K/MM3 (134-434); RDW 11.9 % (11.6-15.6); WHITE BLOOD COUNT 8.4 K/mm3 (4.0-10.8)
[2017-10-22] MEDS: METOPROLOL SUCCINATE 25 MG TAB.SR.24H (FP) PO SCH ×2 (09:50→21:22)
[2017-10-22] MEDS: ENOXAPARIN NA (PORCINE) 40 MG/0.4 ML DISP.SYRIN SQ SCH (09:50)
[2017-10-22] MEDS: ASCORBIC ACID 500 MG TABLET (FP) PO SCH (09:50)
--- NOTE | 2017-10-22 10:04 | CON.CARD ---
Consult Consult Specialty:: Cardiology Referred by:: Hospitalist Reason for Consultation:: Cardiac evaluation - History of Present Illness Chief Complaint: Cough and fever History of Present Illness: Patient is an 82 year old female with underlying history of coronary artery disease s/p PCI/stent about 10 years ago ([employer] Cast[employer] Operator: Israel Werner MD with [facility] office), hypertension, hypercholesterolemia and prior history of Non-Hodgkins Lymphoma now in remission who presented with fever and cough suggestive of pneumonia. She is on antibiotics and nebulizer treatment. She complained of productive cough and fever or 100. She developed narrow complex rapid ventricular response suggestive of PSVT. She was given extra beta jorje. She denies chest pain, shortness of breath or palpitations at this time. She denies paroxysmal nocturnal dyspnea or orthopnea. She denies fever or chills at this time. She denies headache or lightheadedness. Denies any prior syncopal episode. Cardiology consultation was called for further evaluation. - History Source History Provided By: Patient, Medical Record Limitations to Obtaining History: No Limitations - Past Medical History Cardio/Vascular: Yes: CAD, HTN, Hyperlipdemia Pulmonary: Yes: COPD Heme/Onc: Yes: Other (Non Hodgkins Lymphoma in remission) - Past Surgical History Past Surgical History: Yes: Cataract Removal, Stent - Alcohol/Substance Use Hx Alcohol Use: No History of Substance Use: reports: None - Smoking History Smoking history: Never smoked Have you smoked in the past 12 months: No Aproximately how many cigarettes per day: 0 Home Medications - Allergies Allergies/Adverse Reactions: Allergies Allergy/AdvReac Type Severity Reaction Status Date / Time Antihistamines - Ethanolamine Allergy Verified 10/19/17 06:32 Penicillins Allergy Verified 10/19/17 06:32 sulfur [From Sulfur-8] Allergy Verified 10/19/17 06:32 - Home Medications Home Medications: Ambulatory Orders Atorvastatin Ca [Lipitor] 10 mg PO HS 08/29/16 Candesartan Cilexetil [Atacand -] 16 mg PO DAILY 08/29/16 Clopidogrel Bisulfate [Plavix -] 75 mg PO DAILY 08/29/16 Ascorbic Acid [Vitamin C] 1,000 mg PO DAILY 10/19/17 Aspirin 81 mg PO DAILY 10/19/17 Cholecalciferol (Vitamin D3) [Vitamin D] 2,000 unit PO DAILY 10/19/17 Metoprolol Succinate 25 mg PO DAILY 10/19/17 Mv-Mins/Folic Acid/Guarana/Caf [One Daily Tablet] 1 each PO DAILY 10/19/17 Family Disease History - Family Disease History Family History: Denies Review of Systems - Review of Systems Constitutional: reports: Fever. denies: Chills Cardiovascular: denies: Chest Pain, Palpitations, Shortness of Breath Respiratory: reports: Cough. denies: Hemoptysis, Orthopnea, PND, SOB, SOB on Exertion Gastrointestinal: denies: Constipation, Diarrhea, Melena, Nausea, Rectal Bleeding, Vomiting Genitourinary: denies: Dysuria, Hematuria Neurological: denies: Dizziness, Headache, Seizure, Syncope Vital Signs: Vital Signs Temperature 97.7 F 10/22/17 09:48 Pulse Rate 88 10/22/17 09:48 Respiratory Rate 17 10/22/17 09:48 Blood Pressure 126/58 10/22/17 09:48 O2 Sat by Pulse Oximetry (%) 97 10/22/17 06:22 Eyes: Yes: PERRL HENT: Yes: Atraumatic Neck: Yes: Supple Respiratory: Yes: Diminished Gastrointestinal: Yes: Normal Bowel Sounds, Soft. No: Tenderness Cardiovascular: Yes: Regular Rate and Rhythm JVD: No Carotid Bruit: No PMI: Non-Displaced Heart Sounds: Yes: S1, S2. No: Gallop Murmur: Yes: Systolic Murmur, Grade 1 Extremities: Yes: Other (Focal soft tissue swelling noted on left ankle) Edema: No - Other Data Labs, Other Data: CBC, BMP 10/22/17 07:00 INR, PTT INR 1.29 (0.82-1.09) H 10/19/17 08:21 Laboratory Results - last 24 hr 10/19/17 10/21/17 10/21/17 08:21 06:00 06:00 WBC 11.3 H RBC 3.87 Hgb 12.1 Hct 35.5 MCV 91.7 MCH 31.1 MCHC 33.9 RDW 11.9 Plt Count 310 MPV 7.9 Neutrophils % 77.3 Lymphocytes % 10.2 Monocytes % 12.2 H Eosinophils % 0.1 D Basophils % 0.2 Sodium 129 L Potassium 3.9 Chloride 98 Carbon Dioxide 22 Anion Gap 9 BUN 13 Creatinine 0.7 Random Glucose 88 Serum Osmolality Lactic Acid 0.8 Calcium 8.2 L Magnesium Urine Color Urine Appearance Urine pH Ur Specific [place] Urine Protein Urine Glucose (UA) Urine Ketones Urine Blood Urine Nitrite Urine Bilirubin Urine Urobilinogen Ur Leukocyte Esterase Urine RBC Urine WBC Ur Epithelial Cells Urine Osmolality Ur Random Sodium Urine Creatinine 10/21/17 10/21/17 10/21/17 14:00 15:30 15:30 WBC RBC Hgb Hct MCV MCH MCHC RDW Plt Count MPV Neutrophils % Lymphocytes % Monocytes % Eosinophils % Basophils % Sodium Potassium Chloride Carbon Dioxide Anion Gap BUN Creatinine Random Glucose Serum Osmolality 276 L Lactic Acid Calcium Magnesium Urine Color Yellow Urine Appearance Clear Urine pH 6.0 Ur Specific [place] 1.015 Urine Protein 1+ H Urine Glucose (UA) Negative Urine Ketones 1+ H Urine Blood Negative Urine Nitrite Negative Urine Bilirubin Negative Urine Urobilinogen 1.0 Ur Leukocyte Esterase Trace H D Urine RBC 0-2 Urine WBC 4-6 Ur Epithelial Cells 3-5 Urine Osmolality 472 Ur Random Sodium 25 L Urine Creatinine 10/21/17 10/22/17 10/22/17 15:30 07:00 07:00 WBC 8.4 RBC 3.79 Hgb 12.1 Hct 35.2 MCV 92.9 MCH 31.9 MCHC 34.4 RDW 11.9 Plt Count 346 MPV 7.3 L Neutrophils % 71.0 Lymphocytes % 18.6 D Monocytes % 10.0 Eosinophils % 0.2 D Basophils % 0.2 Sodium Potassium Chloride Carbon Dioxide Anion Gap BUN Creatinine Random Glucose Serum Osmolality Lactic Acid Calcium Magnesium 2.1 Urine Color Urine Appearance Urine pH Ur Specific [place] Urine Protein Urine Glucose (UA) Urine Ketones Urine Blood Urine Nitrite Urine Bilirubin Urine Urobilinogen Ur Leukocyte Esterase Urine RBC Urine WBC Ur Epithelial Cells Urine Osmolality Ur Random Sodium Urine Creatinine 126.5 Sinus rhythm with LAFB Echo: Pending Imaging - Results Chest X-ray: Report Reviewed (Right basal atelectasis and infiltrates) EKG: Report Reviewed Problem List - Problems (1) CAD (coronary artery disease) Code(s): I25.10 - ATHSCL HEART DISEASE OF [place] CORONARY ARTERY W/O ANG PCTRS Qualifiers: Coronary Disease-Associated Artery/Lesion type: [place] artery [place] vs. transplanted heart: [place] heart Associated angina: without angina Qualified Code(s): I25.10 - Atherosclerotic heart disease of [place] coronary artery without angina pectoris (2) History of percutaneous coronary intervention Code(s): Z98.890 - OTHER SPECIFIED POSTPROCEDURAL STATES (3) HTN (hypertension) Code(s): I10 - ESSENTIAL (PRIMARY) HYPERTENSION Qualifiers: Hypertension type: essential hypertension Qualified Code(s): I10 - Essential (primary) hypertension (4) Hypercholesterolemia Code(s): E78.00 - PURE HYPERCHOLESTEROLEMIA, UNSPECIFIED (5) Hyponatremia Code(s): E87.1 - HYPO-OSMOLALITY AND HYPONATREMIA (6) Pneumonia Code(s): J18.9 - PNEUMONIA, UNSPECIFIED ORGANISM Qualifiers: Pneumonia type: due to unspecified organism Laterality: right Lung location: lower lobe of lung Qualified Code(s): J18.1 - Lobar pneumonia, unspecified organism Assessment/Plan 1. Clinical presentation c/w pneumonia 2. PSVT 3. CAD s/p PCI/stent 4. Hypertension 5. Hypercholesterolemia 6. History of Non-Hodgkins Lymphoma in remission 7. Hyponatremia PLAN: 1. Continue telemetry monitoring 2. Continue Toprol XL as tolerated and up-titrate as needed. Albuterol should be used with caution. Continue antibiotic coverage 3. Continue ASA and Plavix 4. Continue Lipitor 5. Check TFT 6. Transthoracic echocardiography to assess LV/RV and valvular function 7. If patient continues to have SVT, she may be considered further intervention including EP study/RFA 8. Correct Na. IV fluids Further plans are to follow Axel Westbrook MD
[2017-10-22] MEDS: LEVOFLOXACIN 500 MG IVPB 500 MG/100 ML BAG IVPB SCH (10:29)
[2017-10-22] MEDS: SODIUM CHLORIDE 1,000 ML IV SCH (11:00)
[2017-10-22 12:09] LABS: ANION GAP 10 (8-16); CALCIUM 8.1 mg/dl (8.4-10.2); CO2 21 mmol/L (22-28); CREATININE 0.8 mg/dl (0.6-1.3); GLUCOSE,RANDOM 102 mg/dl (74-106)
[2017-10-22 13:44] LABS: FREE T4 1.25 ng/dl (0.76-1.46); THYROID STIMULATING HORMONE 1.74 uIU/ml (0.358-3.74)
[2017-10-22] MEDS: ATORVASTATIN CA 10 MG TABLET (FP) PO SCH (21:22)
[2017-10-22] MEDS: ASPIRIN 81 MG CHEWABLE TABLETS PO SCH (21:22)
[2017-10-22] MEDS: CLOPIDOGREL BISULFATE 75 MG TABLET (FP) PO SCH (21:22)
--- NOTE | 2017-10-23 08:52 | PN ---
Progress Note, Physician History of Present Illness: Episode of PSVT yesterday, currently in SR. Cough, dyspnea and wheeze improving. - Current Medication List Current Medications: Active Medications Acetaminophen (Tylenol -) 650 mg PO Q4H PRN PRN Reason: FEVER OR PAIN Last Admin: 10/21/17 09:36 Dose: 650 mg Ascorbic Acid (Vitamin C -) 1,000 mg PO DAILY [facility] Last Admin: 10/22/17 09:50 Dose: 1,000 mg Aspirin (Asa -) 81 mg PO HS [facility] Last Admin: 10/22/17 21:22 Dose: 81 mg Atorvastatin Calcium (Lipitor -) 10 mg PO HS [facility] Last Admin: 10/22/17 21:22 Dose: 10 mg Benzocaine/Menthol (Cepacol Lozenge -) 1 each MM PRN PRN PRN Reason: SORE THROAT Last Admin: 10/20/17 20:37 Dose: 1 each Clopidogrel Bisulfate (Plavix -) 75 mg PO HS [facility] Last Admin: 10/22/17 21:22 Dose: 75 mg Enoxaparin Sodium (Lovenox -) 40 mg SQ DAILY [facility] Last Admin: 10/22/17 09:50 Dose: 40 mg Guaifenesin (Robitussin -) 10 ml PO Q6H PRN PRN Reason: COUGH Last Admin: 10/20/17 21:17 Dose: 10 ml Levofloxacin (Levaquin 500 Mg Premixed Ivpb -) 500 mg in 100 mls @ 100 mls/hr IVPB DAILY [facility] Last Admin: 10/22/17 10:29 Dose: 100 mls/hr Sodium Chloride (Normal Saline -) 1,000 mls @ 50 mls/hr IV ASDIR [facility] Last Admin: 10/22/17 11:00 Dose: 50 mls/hr Metoprolol Succinate (Toprol Xl -) 12.5 mg PO BID [facility] Last Admin: 10/22/17 21:22 Dose: 12.5 mg Non-Formulary Medication (Candesartan Cilexetil) 16 mg PO DAILY [facility] - Objective Vital Signs: Vital Signs Temperature 99.2 F 10/23/17 05:00 Pulse Rate 84 10/23/17 05:00 Respiratory Rate 19 10/23/17 05:00 Blood Pressure 151/77 10/23/17 05:00 O2 Sat by Pulse Oximetry (%) 98 10/22/17 21:00 Constitutional: Yes: No Distress, Calm, Thin Neck: Yes: Supple Cardiovascular: Yes: Regular Rate and Rhythm Respiratory: Yes: Regular, Diminished Gastrointestinal: Yes: Normal Bowel Sounds, Soft Edema: No Labs: CBC, BMP 10/22/17 07:00 10/22/17 07:30 INR, PTT INR 1.29 (0.82-1.09) H 10/19/17 08:21 - ....Imaging Chest X-ray: Report Reviewed (COPD, improving right basilar infiltrates and effusion) Problem List - Problems (1) Paroxysmal supraventricular tachycardia Code(s): I47.1 - SUPRAVENTRICULAR TACHYCARDIA (2) CAD (coronary artery disease) Code(s): I25.10 - ATHSCL HEART DISEASE OF [place] CORONARY ARTERY W/O ANG PCTRS Qualifiers: Coronary Disease-Associated Artery/Lesion type: [place] artery [place] vs. transplanted heart: [place] heart Associated angina: without angina Qualified Code(s): I25.10 - Atherosclerotic heart disease of [place] coronary artery without angina pectoris (3) HTN (hypertension) Code(s): I10 - ESSENTIAL (PRIMARY) HYPERTENSION Qualifiers: Hypertension type: essential hypertension Qualified Code(s): I10 - Essential (primary) hypertension (4) History of percutaneous coronary intervention Code(s): Z98.890 - OTHER SPECIFIED POSTPROCEDURAL STATES (5) Hypercholesterolemia Code(s): E78.00 - PURE HYPERCHOLESTEROLEMIA, UNSPECIFIED (6) Hyponatremia Code(s): E87.1 - HYPO-OSMOLALITY AND HYPONATREMIA (7) Pneumonia Code(s): J18.9 - PNEUMONIA, UNSPECIFIED ORGANISM Qualifiers: Pneumonia type: due to unspecified organism Laterality: right Lung location: lower lobe of lung Qualified Code(s): J18.1 - Lobar pneumonia, unspecified organism Assessment/Plan 10/22/2017 Echo: Normal biventricular size and fxn, mild-mod MR, TR 1. Clinical presentation c/w RLL pneumonia with underlying COPD improving 2. PSVT->SR 3. CAD s/p PCI/stent 4. Hypertension 5. Hypercholesterolemia 6. History of Non-Hodgkins Lymphoma in remission 7. Hyponatremia improving PLAN: 1. Continue telemetry monitoring 2. Increase Toprol XL 25 bid and Atacand 16 qd. Continue antibiotic coverage 3. Continue ASA 81 qd and Plavix 75 qd 4. Continue Lipitor 10 qhs 5. If patient continues to have SVT, she may be considered further intervention including EP study/RFA as outpatient 6. Correct Na. IV fluids
--- NOTE | 2017-10-23 09:23 | PN ---
Progress Note, Physician History of Present Illness: Feeling better Still with cough, whitish sputum No c/o chest pain/ dyspnea Temps down Afebrile WBC WNL Legionella/ Pneumococcal ag (-) Tolerating levaquin - Current Medication List Current Medications: Active Medications Acetaminophen (Tylenol -) 650 mg PO Q4H PRN PRN Reason: FEVER OR PAIN Last Admin: 10/21/17 09:36 Dose: 650 mg Ascorbic Acid (Vitamin C -) 1,000 mg PO DAILY [facility] Last Admin: 10/22/17 09:50 Dose: 1,000 mg Aspirin (Asa -) 81 mg PO HS [facility] Last Admin: 10/22/17 21:22 Dose: 81 mg Atorvastatin Calcium (Lipitor -) 10 mg PO HS [facility] Last Admin: 10/22/17 21:22 Dose: 10 mg Benzocaine/Menthol (Cepacol Lozenge -) 1 each MM PRN PRN PRN Reason: SORE THROAT Last Admin: 10/20/17 20:37 Dose: 1 each Clopidogrel Bisulfate (Plavix -) 75 mg PO HS [facility] Last Admin: 10/22/17 21:22 Dose: 75 mg Enoxaparin Sodium (Lovenox -) 40 mg SQ DAILY [facility] Last Admin: 10/22/17 09:50 Dose: 40 mg Guaifenesin (Robitussin -) 10 ml PO Q6H PRN PRN Reason: COUGH Last Admin: 10/20/17 21:17 Dose: 10 ml Levofloxacin (Levaquin 500 Mg Premixed Ivpb -) 500 mg in 100 mls @ 100 mls/hr IVPB DAILY [facility] Last Admin: 10/22/17 10:29 Dose: 100 mls/hr Sodium Chloride (Normal Saline -) 1,000 mls @ 50 mls/hr IV ASDIR [facility] Last Admin: 10/22/17 11:00 Dose: 50 mls/hr Metoprolol Succinate (Toprol Xl -) 25 mg PO BID [facility] Valsartan (Diovan -) 160 mg PO DAILY [facility] - Objective Vital Signs: Vital Signs Temperature 99.2 F 10/23/17 05:00 Pulse Rate 84 10/23/17 05:00 Respiratory Rate 19 10/23/17 05:00 Blood Pressure 151/77 10/23/17 05:00 O2 Sat by Pulse Oximetry (%) 98 10/22/17 21:00 Constitutional: Yes: No Distress Eyes: Yes: Conjunctiva Clear Cardiovascular: Yes: Regular Rate and Rhythm, S1, S2 Respiratory: Yes: CTA Bilaterally Gastrointestinal: Yes: Normal Bowel Sounds, Soft. No: Tenderness Edema: LLE: 1+, RLE: 1+ Labs: CBC, BMP 10/22/17 07:00 10/22/17 07:30 INR, PTT INR 1.29 (0.82-1.09) H 10/19/17 08:21 Assessment/Plan RLL pneumonia Multiple antibiotic allergies Fever/ leukocytosis- resolved Hyponatremia Hx NHL May substitute po levaquin for additional 7d Hyponatremia w/u per primary team
[2017-10-23] MEDS: LEVOFLOXACIN 500 MG IVPB 500 MG/100 ML BAG IVPB SCH (09:29)
[2017-10-23] MEDS: ASCORBIC ACID 500 MG TABLET (FP) PO SCH (09:29)
[2017-10-23] MEDS: ENOXAPARIN NA (PORCINE) 40 MG/0.4 ML DISP.SYRIN SQ SCH (09:30)
[2017-10-23] MEDS: SODIUM CHLORIDE 1,000 ML IV SCH (09:35)
[2017-10-23] MEDS ORDERED: VALSARTAN 160 MG TABLET (UD) PO SCH (10:00)
[2017-10-23] MEDS ORDERED: CANDESARTAN CILEXETIL 16 MG PO SCH (10:00)
[2017-10-23] MEDS ORDERED: METOPROLOL SUCCINATE 25 MG TAB.SR.24H (FP) PO SCH (10:00)
--- NOTE | 2017-10-23 10:04 | DS ---
Physical Exam: SUBJECTIVE: Patient seen and examined, patient reports feeling much improved, denies any chest pain or shortness of breath. OBJECTIVE:82yo F with PMH NHL s/p chemo and Rtx (completed 2007) and CAD s/p stent presented to the ER wtih productive cough x5 days. Initially was clear sputum and turned to grayish yesterday. assoc with subjective fevers (took temp at home was 100) and rhinorhea. no other assoc symptoms. lives in assisted living so always has sick contacts. denies CP, SOB, chills, night sweats, N/V/C/ D, sinus tenderness, ear fullness or ringing in the ears ambulates with cane Vital Signs Period Temp Pulse Resp BP Sys/Fuentes Pulse Ox Last 24 Hr 98.3 F-99.2 F 84-91 17-19 119-151/66-86 98-100 PHYSICAL EXAM GENERAL: The patient is awake, alert, and fully oriented, in no acute distress. HEAD: Normal with no signs of trauma. EYES: PERRL, extraocular movements intact, sclera anicteric, conjunctiva clear. ENT: Ears normal, nares patent, oropharynx clear without exudates, moist mucous membranes. NECK: Trachea midline, full range of motion, supple. LUNGS: Breath sounds equal, clear to auscultation to left apex and base, crackles to right apex, diminished to to right base, no wheezes, no accessory muscle use. HEART: Regular rate and rhythm, S1, S2 without murmur, rub or gallop. ABDOMEN: Soft, nontender, nondistended, normoactive bowel sounds, no guarding, no rebound, no hepatosplenomegaly, no masses. EXTREMITIES: 2+ pulses, warm, well-perfused, no edema. NEUROLOGICAL: Cranial nerves II through XII grossly intact. Normal speech, gait not observed. PSYCH: Normal mood, normal affect. SKIN: Warm, dry, normal turgor, no rashes or lesions noted. LABS Laboratory Results - last 24 hr 10/22/17 07:30 Sodium 133 L Potassium 3.8 Chloride 102 Carbon Dioxide 21 L Anion Gap 10 BUN 13 Creatinine 0.8 Random Glucose 102 Calcium 8.1 L TSH 1.74 Free T4 1.25 Microbiology 10/21/17 15:30 Urine - Urine Clean Catch Urine Culture - Final NO GROWTH OBTAINED 10/19/17 08:00 Blood - Peripheral Venous Blood Culture - Preliminary NO GROWTH OBTAINED AFTER 96 HOURS, INCUBATION TO CONTINUE FOR 1 DAYS. 10/19/17 08:15 Blood - Peripheral Venous Blood Culture - Preliminary NO GROWTH OBTAINED AFTER 96 HOURS, INCUBATION TO CONTINUE FOR 1 DAYS. 10/20/17 14:00 Urine For Antigen Detection Legionella Antigen - Final 10/20/17 14:00 Urine For Antigen Detection Streptococcus pneumoniae Antigen (M - Final 10/19/17 14:00 Urine - Urine Clean Catch Legionella Antigen - Final, negative 10/19/17 14:00 Urine - Urine Clean Catch Streptococcus pneumoniae Antigen ( M - Final, negative 10/19/17 14:29 Urine - Urine Clean Catch Urine Culture - Final Diphtheroid/Corynebacterium 10/19/17 08:21 Nasopharyngeal Swab Influenza Types A,B Antigen (MARLI) - Final 10/19/17 08:21 Nasopharyngeal Swab - Final IMAGING chest xray (10/19/17): right base increased lung markings chest xray (10/21/17): worsening of right lung infiltrate chest xray (10/23/17): improvement of right lung infilitrate HOSPITAL COURSE: 1) right lower lobe pneumonia, patient is afebrile no leukocytosis is noted, blood and urine culture negative to date, treated with IV levaquin (10/20/17 - ) . Infectious disease physician, Dr Pete consulted and followed. 2) supraventricular tachycardia 2 episodes of SVT noted, one episode of SVT on the overnight of 10/22/17, lopressor 5mg IV x 1 given, pt converted to NSR, lopressor increased to 25mg BID, echo 10/22, LV wnl, moderate TR, Moderate MR. Dr Westbrook, cardiology consulted and followed. harness and bag inspector, Dr Westbrook was consulted and followed patient throughout admission. Patient has a past medical history of CAD, s/p stent, chart copy received from Dr Mejia (private harness and bag inspector) echo 11/20/16 ef 68%, diastolic dysfunction, moderate TR, lipitor , asa, and plavix was continued throughout admission. 3) Hyponatremia, FeNa 0.1%, pre renal, she was treated with NS @ 50mL/hr, serum sodium improved, atacand was held due to the possibility of contributing to hyponatremia PLAN: - discharge to assisted living within visiting nurse - [facility] 7 [facility] - strict follow up with PCP and Dr Mejia within 2 weeks. Date of Admission:10/19/17 Date of Discharge: 10/23/17 Minutes to complete discharge: 45 Discharge Summary Reason For Visit: PNEUMONIA Current Active Problems Allergy to multiple antibiotics (Acute) CAD (coronary artery disease) (Acute) HTN (hypertension) (Acute) History of percutaneous coronary intervention (Acute) Hypercholesterolemia (Acute) Hyponatremia (Acute) Pneumonia (Acute) Condition: Stable - Instructions - Home Medications Comprehensive Discharge Medication List: Ambulatory Orders Atorvastatin Ca [Lipitor] 10 mg PO HS 08/29/16 Candesartan Cilexetil [Atacand -] 16 mg PO DAILY 08/29/16 Clopidogrel Bisulfate [Plavix -] 75 mg PO DAILY 08/29/16 Ascorbic Acid [Vitamin C] 1,000 mg PO DAILY 10/19/17 Aspirin 81 mg PO DAILY 10/19/17 Cholecalciferol (Vitamin D3) [Vitamin D] 2,000 unit PO DAILY 10/19/17 Metoprolol Succinate 25 mg PO DAILY 10/19/17 Mv-Mins/Folic Acid/Guarana/Caf [One Daily Tablet] 1 each PO DAILY 10/19/17 This patient is new to me today: No Emergency Visit: Yes ED Registration Date: 10/19/17 Care time: The patient presented to the Emergency Department on the above date and was hospitalized for further evaluation of their emergent condition. Critical Care patient: No - Discharge Referral Referred to [facility] No
[2017-10-23 14:44] VITALS: BP 123/59; PULSE 100; TEMP 98.3
--- NOTE | 2017-10-24 13:08 | EKG ---
Test Reason : Blood Pressure : / mmHG Vent. Rate : 106 BPM Atrial Rate : 106 BPM P-R Int : 000 ms QRS Dur : 086 ms QT Int : 310 ms P-R-T Axes : 072 -31 061 degrees QTc Int : 411 ms SINUS TACHYCARDIA LEFT AXIS DEVIATION ABNORMAL ECG WHEN COMPARED WITH ECG OF 19-OCT-2017 08:18, PREMATURE ATRIAL COMPLEXES ARE NO LONGER PRESENT Confirmed by DUSTIN FELDMAN MD ([id number]) on 10/24/2017 1:08:20 PM Referred By: DR LOMBARDO Confirmed By:DUSTIN FELDMAN MD
== END 2017-10-23 15:17 | disposition home health service (06) | DRG 194 ==
LOC: FER 06:27 → FM/S 11:06
PROVIDERS: ADMIT Internal Medicine; ATTEND Nurse Practitioner Family
DX: J18.9 Pneumonia, unspecified organism (principal); E87.1 Hypo-osmolality and hyponatremia; I47.1 Supraventricular tachycardia; I10 Essential (primary) hypertension; I25.10 Atherosclerotic heart disease of native coronary artery without angina pectoris; E86.0 Dehydration; D72.828 Other elevated white blood cell count; Z88.1 Allergy status to other antibiotic agents; Z85.72 Personal history of non-Hodgkin lymphomas; Z95.5 Presence of coronary angioplasty implant and graft
CPT/HCPCS: 36415; 71020-TC; 80048; 80053; 81003; 81015; 82570; 83605; 83735; 83930; 83935; 84100; 84300; 84439; 84443; 84484; 85025; 85610; 85730; 87040; 87077; 87086; 87804; 87899; 93005; 93306-TC; 94640; 97116-GP; 97161-GP; 99283-25

== ENCOUNTER 2017-12-16 14:45 | Emergency (ER) | payer OTHER ==
[2017-12-16] MEDS ORDERED: ACETAMINOPHEN 325 MG TABLET (FP) PO ONE (15:06)
--- NOTE | 2017-12-16 15:18 | PDOC ---
History of Present Illness - General Chief Complaint: Pain Stated Complaint: RT KNEE PAIN Time Seen by Provider: 12/16/17 14:46 - History of Present Illness Initial Comments: 12/16/17 15:16 Patient is an 82 F who was BIBA from [facility], with PMHX of CAD s/p stent and non-hodgkin's lymphoma s/p chemo, who presents with right knee pain for 3 weeks. She states she was at a constitution party 3 weeks ago and was on her feet for a long time, and she has had mild pain since then. Denies any trauma or falls. Today, pt was walking when she suddenly felt a sharp pain in her knee. She immediately noticed swelling on the inside of her R knee. Pt denies any redness , denies F/C. Denies any swelling distal to her knee. Pt is still able to ambulate but with some discomfort. Past History - Past Medical History Allergies/Adverse Reactions: Allergies Allergy/AdvReac Type Severity Reaction Status Date / Time Antihistamines - Ethanolamine Allergy Verified 10/19/17 06:32 Penicillins Allergy Verified 10/19/17 06:32 sulfur [From Sulfur-8] Allergy Verified 10/19/17 06:32 Home Medications: Ambulatory Orders Atorvastatin Ca [Lipitor] 10 mg PO HS 08/29/16 Candesartan Cilexetil [Atacand -] 16 mg PO DAILY 08/29/16 Clopidogrel Bisulfate [Plavix -] 75 mg PO DAILY 08/29/16 Ascorbic Acid [Vitamin C] 1,000 mg PO DAILY 10/19/17 Aspirin 81 mg PO DAILY 10/19/17 Cholecalciferol (Vitamin D3) [Vitamin D3] 2,000 unit PO DAILY 10/19/17 Mv-Mins/Folic Acid/Guarana/Caf [One Daily Tablet] 1 each PO DAILY 10/19/17 Metoprolol Succinate [Toprol XL -] 25 mg PO BID #60 tab.sr.24h 10/23/17 Cancer: Yes (CANCER 2008 NON HODGKINS LYMPHOMA) Cardiac Disorders: Yes (STENT) COPD: No - Immunization History Immunization Up to Date: Yes - Suicide/Smoking/Psychosocial Hx Smoking History: Never smoked Have you smoked in the past 12 months: No Number of Cigarettes Smoked Daily: 0 Cigars Per Day: 0 Hx Alcohol Use: No Drug/Substance Use Hx: No Substance Use Type: None Review of Systems - Review of Systems Comments:: 12/16/17 15:18 "GENERAL/CONSTITUTIONAL: No fever or chills. No weakness. HEAD, EYES, EARS, NOSE AND THROAT: No change in vision. No ear pain or discharge. No sore throat. CARDIOVASCULAR: No chest pain or shortness of breath. RESPIRATORY: No cough, wheezing, or hemoptysis. GASTROINTESTINAL: No nausea, vomiting, diarrhea or constipation. GENITOURINARY: No dysuria, frequency, or change in urination. MUSCULOSKELETAL: +right knee swelling and pain. No neck or back pain. SKIN: No rash NEUROLOGIC: No headache, vertigo, loss of consciousness, or change in strength/ sensation. ENDOCRINE: No increased thirst. No abnormal weight change. HEMATOLOGIC/LYMPHATIC: No anemia, easy bleeding, or history of blood clots. ALLERGIC/IMMUNOLOGIC: No hives or skin allergy. " *Physical Exam - Physical Exam Comments: 12/16/17 15:21 "GENERAL: Awake, alert, and fully oriented, in no acute distress HEAD: No signs of trauma EYES: PERRLA, EOMI, sclera anicteric, conjunctiva clear ENT: Auricles normal inspection, hearing grossly normal, nares patent, oropharynx clear without exudates. Moist mucosa NECK: Nontender, no stepoffs, Normal ROM, supple, no lymphadenopathy, JVD, or masses LUNGS: Breath sounds equal, clear to auscultation bilaterally. No wheezes, and no crackles HEART: Regular rate and rhythm, normal S1 and S2, no murmurs, rubs or gallops ABDOMEN: Soft, nontender, normoactive bowel sounds. No guarding, no rebound. No masses EXTREMITIES: RLE with tenderness to palpation medial joint line, mild effusion, normal ROM, + valgus stress test, negative apley grind, normal anterior/ posterior drawer test. No clubbing or cyanosis. No cords, erythema, or tenderness, distal pulses and sensation intact NEUROLOGICAL: Cranial nerves II through XII intact. 5/5 strength and sensation in all extremities, Normal speech, normal gait, normal cerebellar function SKIN: Warm, Dry, normal turgor, no rashes or lesions noted. ED Treatment Course - RADIOLOGY Radiology Studies Ordered: Category Date Time Status KNEE 3 POS-RIGHT [RAD] Stat Radiology 12/16/17 15:03 Ordered DUPLEX VASCUL US-1 LEG [US] Stat Ultrasound 12/16/17 15:03 Ordered Medical Decision Making - Medical Decision Making 12/16/17 15:11 82 F with acute onset of atraumatic R knee pain today. Exam notable for mild joint effusion medially and + valgus stress test. Possible MCL injury. Also consider bursitis vs tendinitis. Possible ruptured anderson's cyst. Pt with no infectious symptoms to suggest septic arthritis. Able to range knee and bear weight. Possible pseudogout, but acute onset makes this less likely. DVT is unlikey as swelling is localized only to medial R knee, but will obtain doppler to evaluate. Fx also unlikely as pt denies any trauma, but given age, will r/o with XR. - XR R knee - RLE doppler - Tylenol 12/16/17 15:46 RLE doppler negative for DVT. XR on my read negative for acute fx. MINA bandage applied. Pt instructed to f/u with ortho. *DC/Admit/Observation/Transfer Diagnosis at time of Disposition: Knee pain, right - Discharge Dispostion Disposition: HOME - Referrals Referrals: Jaleel Magallon MD [Staff Physician] - - Patient Instructions Printed Discharge Instructions: DI for Knee Pain Additional Instructions: Please follow up with an orthopedic surgeon within 1 week for further evaluation of your knee pain and swelling. You may have a ligamentous injury and will likely need an MRI. Keep your leg elevated when possible and apply ice to reduce swelling. Take tylenol as needed for pain. Do not take ibuprofen, aspirin, or naproxen. If you experience worsening pain, swelling, redness, fevers, or any other concerning symptoms, return to the ER immediately. - Post Discharge Activity - Attestations Physician Attestion: 12/16/17 15:28 I, Dr. Jaleel Fernandes MD, attest that this document has been prepared under my direction and personally reviewed by me in its entirety. I further attest, that it accurately reflects all work, treatment, procedures and medical decision -making performed by me.
[2017-12-16 15:19] VITALS: BP 145/91; PULSE 76; TEMP 98.5; BMI 22.0
[2017-12-16] MEDS ORDERED: ACETAMINOPHEN 325 MG TABLET (FP) ONE (15:37)
== END 2017-12-16 16:27 | disposition home or self-care (01) ==
LOC: FER 14:45
DX: M25.561 Pain in right knee (principal); I25.10 Atherosclerotic heart disease of native coronary artery without angina pectoris; Z95.5 Presence of coronary angioplasty implant and graft; C85.90 Non-Hodgkin lymphoma, unspecified, unspecified site; Z92.21 Personal history of antineoplastic chemotherapy; Z88.0 Allergy status to penicillin; Z88.2 Allergy status to sulfonamides
CPT/HCPCS: 73562-TC-RT-FY; 93971-TC; 99282-25

== ENCOUNTER 2018-03-30 03:57 | Emergency (ER) | payer OTHER ==
[2018-03-30 04:09] VITALS: BP 154/82; PULSE 66; TEMP 98.6; BMI 21.9
--- NOTE | 2018-03-30 04:25 | PDOC ---
History of Present Illness - General Chief Complaint: Pain, Acute Stated Complaint: BURNING SENSATIONUP ENTIRE BODY SINCE SATURDAY Time Seen by Provider: 03/30/18 04:02 - History of Present Illness Initial Comments: This 83-year-old woman with a history of CAD (S/P stent) and non-Hodgkin's lymphoma (2007), along with the right knee sprain 3 months ago (seen here) is brought in by ambulance from the [facility] with a few day history of intermittent bilateral lower extremity burning pain. The pain, which patient describes as burning, starts in her toes and radiates up both legs. She feels the sensation extending into her torso bilaterally. Tonight, it awakened her from sleep. She first felt the pain while in physical therapy 4 days ago. Patient is unable to say if pain starts or becomes worse with physical activity. The burning sensation has previously resolved spontaneously without medication or change in position. No previous history of this type of pain. She denies new weakness of any extremity. Patient denies any new medication/supplements/vitamin. No history of known vitamin deficiencies. No recent travel or acute febrile illnesses. Patient has no history of smoking; she admits to occasional alcohol in the past but none currently; no other recreational drug use Past History - Past Medical History Allergies/Adverse Reactions: Allergies Allergy/AdvReac Type Severity Reaction Status Date / Time Antihistamines - Ethanolamine Allergy Verified 03/30/18 04:00 erythromycin base Allergy Verified 03/30/18 04:00 morphine Allergy Verified 03/30/18 04:00 Penicillins Allergy Verified 03/30/18 04:00 sulfur [From Sulfur-8] Allergy Verified 03/30/18 04:00 Home Medications: Ambulatory Orders Atorvastatin Ca [Lipitor] 10 mg PO HS 08/29/16 Candesartan Cilexetil [Atacand -] 16 mg PO DAILY 08/29/16 Clopidogrel Bisulfate [Plavix -] 75 mg PO DAILY 08/29/16 Ascorbic Acid [Vitamin C] 1,000 mg PO DAILY 10/19/17 Aspirin 81 mg PO DAILY 10/19/17 Cholecalciferol (Vitamin D3) [Vitamin D3] 2,000 unit PO DAILY 10/19/17 Mv-Mins/Folic Acid/Guarana/Caf [One Daily Tablet] 1 each PO DAILY 10/19/17 Metoprolol Succinate [Toprol XL -] 25 mg PO BID #60 tab.sr.24h 10/23/17 Cancer: Yes (CANCER 2008 NON HODGKINS LYMPHOMA) Cardiac Disorders: Yes (STENT) COPD: No - Immunization History Immunization Up to Date: Yes - Suicide/Smoking/Psychosocial Hx Smoking History: Never smoked Have you smoked in the past 12 months: No Number of Cigarettes Smoked Daily: 0 Cigars Per Day: 0 Hx Alcohol Use: No Drug/Substance Use Hx: No Substance Use Type: None Review of Systems - Review of Systems Able to Perform ROS?: Yes Comments:: 12 point review of systems is negative except for what is noted in the history of present illness *Physical Exam - Physical Exam Comments: GENERAL: Elderly female, alert and oriented 3, mildly frail but in no acute distress HEAD: Normal with no signs of trauma. EYES: PERRLA, EOMI, sclera anicteric, conjunctiva clear. ENT: Ears normal, nares patent, oropharynx clear without exudates. Moist mucous membranes. NECK: Normal range of motion, supple without lymphadenopathy, JVD, or masses. LUNGS: Breath sounds equal, clear to auscultation bilaterally. No wheezes, and no crackles. HEART:Regular rate and rhythm, normal S1 and S2 without murmur, rub or gallop. ABDOMEN:.normal bowel sounds No guarding,tenderness or rebound.No masses No distention. EXTREMITIES: Normal range of motion, no edema. No clubbing or cyanosis. No erythema, or masses except for to firm, nontender 2.5 cm vascular based Masses of the medial left lower leg (patient states that these were present after treatment for lymphoma in 2007) Dorsalis pedis pulses briskly palpable bilateral midfoot; distal foot is warm and dry with good capillary refill The patient states that there is mild burning type pain on palpation of the anterior tibial surfaces bilaterally NEUROLOGICAL: Cranial nerves II through XII grossly intact. Normal speech. No focal neurologic deficits. Motor 5/5 throughout Gait is halting MUSCULOSKELETAL: Back non-tender to palpation, no CVA tenderness SKIN: Warm, Dry, normal turgor, no rashes or lesions noted. Medical Decision Making - Medical Decision Making 83-year-old woman with a history of coronary artery disease/non-Hodgkin's lymphoma presents with a few day history of intermittent burning sensation of bilateral lower extremities. Tonight's episode, prompting her to come to the ER , awakened her from sleep. She admits that the pain has largely resolved by the time she has presented to the ER. Exam, as noted, reveals no focal neurologic deficit; distal lower extremities appear to have adequate vascular supply with palpable pulses at mid-foot and warm feet with good capillary refill. Characteristics of pattern of this pain is highly suggestive of neuropathic origin. Etiology of this is unclear in this patient who is not diabetic, has no known history of vitamin deficiency and has no history of alcoholism. Since the pain has largely resolved spontaneously tonight, further evaluation and treatment is best pursued by her general medical doctor. Patient understands this and agrees to the plan. Patient has an appointment with her cardiac surgeon in 2 days and an mineralogy professor (for treatment of osteopenia) in 5 days. She states that she had been seen by her health teacher a few weeks ago for her routine periodic evaluation and "things were fine". Patient has been advised to follow- up with her health teacher in the near future since she has this new symptom. Meanwhile, she should return to the emergency room if she has persistent, severe pain or any new weakness evident extremity. Since [facility] has no mechanism for return trips from the emergency department for their residents, patient's son (Zackery Salvador) contacted by phone. Patient lives in [place] but is in [facility] for the weekend. Situation explained to the son and he arranged for Uber ride for his mother to return to the assisted living facility. [employer] came into the ED and nursing staff accompanied patient to the car, assisting her into the car. *DC/Admit/Observation/Transfer Diagnosis at time of Disposition: Neuropathic pain of both legs - Discharge Dispostion Disposition: HOME Condition at time of disposition: Stable - Referrals - Patient Instructions Printed Discharge Instructions: Peripheral Neuropathy Additional Instructions: Continue medications as prescribed Follow-up with cardiac surgeon on Saturday, March 31 as previously arranged Call your general medical doctor for follow-up as soon as possible Return to ER if you have severe, persistent pain - Post Discharge Activity
== END 2018-03-30 05:01 | disposition home or self-care (01) ==
LOC: FER 03:57
DX: G57.93 Unspecified mononeuropathy of bilateral lower limbs (principal); I25.10 Atherosclerotic heart disease of native coronary artery without angina pectoris; C85.90 Non-Hodgkin lymphoma, unspecified, unspecified site; Z95.5 Presence of coronary angioplasty implant and graft
CPT/HCPCS: 99281-25

== ENCOUNTER 2019-08-31 08:43 | Emergency (ER) | payer OTHER ==
--- NOTE | 2019-08-31 08:52 | PDOC ---
Attending Attestation - Resident Resident Name: Chip Flor - HPI HPI: 08/31/19 09:43 Pt presents to the ed complaining of dark urine and slight dysuria. Reports a history of frequent UTIs and multiple antibiotic allergies. Denies fever, nausea or vomiting, flank pain or other systemic signs of infection. - Physicial Exam PE: 08/31/19 09:47 Agree with resident exam. Patient is alert and oriented x 3 and in no acute distress. Cv: regular rate and rhythm, no murmurs. Pulm: CTA b/l. Abdomen: soft, non tender, non distended, no guarding or rebound. 08/31/19 10:21 - Medical Decision Making 08/31/19 10:26 Pt presents to the ED complaining of discolored urine. Labs are consistent with UTI. Since patient has no systemic symptoms, I feel that she can be safely discharged. Will discharge home with macrobid and instructions to return to the ED for worsening symptoms.
[2019-08-31 09:08] VITALS: TEMP 98; BMI 23.3
[2019-08-31 09:27] LABS: EPITHELIAL CELLS FEW /hpf; URINE MUCUS 1+
--- NOTE | 2019-08-31 09:29 | PDOC ---
History of Present Illness - General Chief Complaint: Urinary Problem Stated Complaint: POSSIBLE BLOOD IN URINE Time Seen by Provider: 08/31/19 08:51 History Source: Patient Exam Limitations: No Limitations - History of Present Illness Initial Comments: 08/31/19 12:07 HPI: 84F PMH HTN HLD CAD s/p stent c/o brownish-red urine since this morning w/ associated hesitancy and irritation in the area. Asymptomatic prior to this morning. Endorses mild dysuria. Denies f/c, n/v, abd pain. Allergies reviewed - many abx allergies; discussed w/ patient who states microbid often works Past History - Past Medical History Allergies/Adverse Reactions: Allergies Allergy/AdvReac Type Severity Reaction Status Date / Time Antihistamines - Ethanolamine Allergy Intermediate Verified 08/31/19 09:01 ciprofloxacin [From Cipro] Allergy Intermediate Verified 08/31/19 09:01 codeine Allergy Intermediate Verified 08/31/19 09:01 erythromycin base Allergy Intermediate Verified 08/31/19 09:01 morphine Allergy Intermediate Verified 08/31/19 09:01 Penicillins Allergy Intermediate Verified 08/31/19 09:01 sulfur [From Sulfur-8] Allergy Intermediate Verified 08/31/19 09:01 Home Medications: Ambulatory Orders Atorvastatin Ca [Lipitor] 10 mg PO HS 08/29/16 Candesartan Cilexetil [Atacand -] 16 mg PO HS 08/29/16 Ascorbic Acid [Vitamin C] 1,000 mg PO DAILY 10/19/17 Aspirin 81 mg PO HS 10/19/17 Cholecalciferol (Vitamin D3) [Vitamin D3] 2,000 unit PO DAILY 10/19/17 Mv-Mins/Folic Acid/Guarana/Caf [One Daily Tablet] 1 each PO DAILY 10/19/17 Metoprolol Succinate [Toprol XL -] 12.5 mg PO BID 08/31/19 Nitrofurantoin Monohyd/M-Cryst [Macrobid -] 100 mg PO BID #13 capsule 08/31/19 Cancer: Yes (CANCER 2008 NON HODGKINS LYMPHOMA) Cardiac Disorders: Yes (STENT) COPD: No HTN: Yes Hypercholesterolemia: Yes Other medical history: RIGHT EYE VISION LOSS - Surgical History Cardiac Surgery: Yes (1 STENT) - Immunization History Immunization Up to Date: Yes - Psycho Social/Smoking Cessation Hx Smoking History: Never smoked Have you smoked in the past 12 months: No Number of Cigarettes Smoked Daily: 0 Cigars Per Day: 0 Information on smoking cessation initiated: No Hx Alcohol Use: No Drug/Substance Use Hx: No Substance Use Type: None Review of Systems - Review of Systems Able to Perform ROS?: Yes Comments:: 08/31/19 12:07 ROS: CONSTITUTIONAL: Denies F / C RESP: Denies SOB CARD: Denies chest pain GI: Denies N / V / D, abdominal pain, inability to tolerate PO : Endorses possible hematuria, mild dysuria. Endorses longstanding frequency. SKIN: Denies rashes NEURO: Denies numbness, tingling, weakness Is the patient limited [place] proficient: No *Physical Exam - Vital Signs Last Vital Signs Temp Pulse Resp BP Pulse Ox 98 F 74 16 151/85 100 08/31/19 08:48 08/31/19 08:48 08/31/19 08:48 08/31/19 08:48 08/31/19 08:48 - Physical Exam Comments: 08/31/19 12:07 PE: GEN: Well appearing, NAD, comfortable. AAOx3 HEENT: NC/AT, EOMI, PERRLA. No facial asymmetry. Normal voice. CV: S1/S2, RRR, no m/r/g LUNG: CTAB, no wheezes, crackles, rales, rhonchi. GI: soft, ndnt, +BS, no guarding, no rebound. No masses. Neg CVAT b/l. EXTREMITIES: No obvious deformities of all extremities. SKIN: warm, dry, normal turgor PSYCH: normal mood and affect NEURO: Moving all extremities well. ED Treatment Course - LABORATORY CBC & Chemistry Diagram: 08/31/19 09:50 08/31/19 09:50 - ADDITIONAL ORDERS Additional order review: Laboratory Results 08/31/19 09:10 Urine Color Dark Urine Appearance Cloudy Urine pH 6.5 Urine Protein 3+ H Urine Glucose (UA) Negative Urine Ketones Negative Urine Blood 3+ H Urine Nitrite Positive H Urine Bilirubin Negative Urine Urobilinogen 0.2 Ur Leukocyte Esterase 3+ Medical Decision Making - Medical Decision Making 08/31/19 09:27 MDM: 84F c/o 1 day of brown-red urine w/ hesitancy and irritation. Benign physical exam. UA CBC, CMP 08/31/19 09:32 UA pos UTI 08/31/19 10:24 labs reviewed reassuring dc home abx pcp f/u return precautions Discharge - Discharge Information Problems reviewed: Yes Clinical Impression/Diagnosis: Urinary tract infection Qualifiers: Urinary tract infection type: site unspecified Hematuria presence: with hematuria Qualified Code(s): N39.0 - Urinary tract infection, site not specified Condition: Stable Disposition: HOME - Admission No - Additional Discharge Information Prescriptions: Nitrofurantoin Monohyd/M-Cryst [Macrobid -] 100 mg PO BID #13 capsule - Follow up/Referral - Patient Discharge Instructions Patient Printed Discharge Instructions: DI for Urinary Tract Infection (UTI) Additional Instructions: We have sent antibiotics to your pharmacy which should be delivered to you. Please take them as prescribed and finish the entire course. This is a twice a day medication. You have received your first dose prior to discharge from the Emergency Department. Follow up with your primary care doctor in the next 7 days regarding this ED visit. IMMEDIATELY return to the closest Emergency Department if you experience worsening, new, or concerning symptoms. - Post Discharge Activity
[2019-08-31 09:59] LABS: BASO % 0.3 % (0-2.0); EOS % 0.4 % (0-4.5); HEMATOCRIT 39.3 % (32.4-45.2); HEMOGLOBIN 12.9 GM/dl (10.7-15.3); LYMPH % 13.5 % (8-40); MCH 30.9 pg (25.7-33.7); MCHC 32.9 g/dl (32.0-36.0); MEAN CELL VOLUME 93.9 fl (80-96); MEAN PLT VOLUME 7.5 fl (7.5-11.1); MONO % 9.6 % (3.8-10.2); NEUT % 76.2 % (42.8-82.8); PLATELET COUNT 319 K/MM3 (134-434); RBC 4.19 M/mm3 (3.60-5.2)
[2019-08-31 10:01] LABS: ALBUMIN 3.6 g/dl (3.4-5.0); BILIRUBIN,TOTAL 0.6 mg/dl (0.2-1); CALCIUM 9.2 mg/dl (8.5-10); CREATININE 0.9 mg/dl (0.55-1.3); POTASSIUM 4.4 mmol/L (3.5-5.1); TOT PROT 6.6 g/dl (6.4-8.2)
[2019-08-31] MEDS ORDERED: NITROFURANTOIN MACROCRYSTAL 50 MG CAPSULE (FP) PO SCH (10:30)
[2019-08-31] MEDS ORDERED: NITROFURANTOIN MACROCRYSTAL 50 MG CAPSULE (FP) ONE (10:34)
[2019-08-31 10:41] VITALS: BP 139/75; PULSE 82
== END 2019-08-31 10:53 | disposition home or self-care (01) ==
LOC: FER 08:43
DX: N39.0 Urinary tract infection, site not specified (principal); I10 Essential (primary) hypertension; E78.5 Hyperlipidemia, unspecified; I25.10 Atherosclerotic heart disease of native coronary artery without angina pectoris; Z95.5 Presence of coronary angioplasty implant and graft; Z87.440 Personal history of urinary (tract) infections; Z88.0 Allergy status to penicillin; Z88.2 Allergy status to sulfonamides; Z88.5 Allergy status to narcotic agent; Z88.8 Allergy status to other drugs, medicaments and biological substances; Z79.82 Long term (current) use of aspirin; C85.90 Non-Hodgkin lymphoma, unspecified, unspecified site
CPT/HCPCS: 36415; 80053; 81003; 81015; 85025; 87086; 87186; 99282-25

== ENCOUNTER 2020-04-28 12:02 | Emergency (ER) | payer OTHER ==
--- NOTE | 2020-04-28 12:21 | PDOC ---
History of Present Illness - General Chief Complaint: Wound Stated Complaint: NON HEALING WOUND LEFT LOWER LEG WITH REDNESS AND Time Seen by Provider: 04/28/20 12:19 History Source: Patient Exam Limitations: No Limitations - History of Present Illness Initial Comments: 04/28/20 12:20 85y F hx of CAD sp stent, non hodgkins lymphoma, presents with redness and swelling to her L leg. Pt sustained a laceration 1 month ago, came to the ED and had it repaired with dermabond. Pt noticed some mild swelling (unclear exactly when it started) and some redness this morning. She states she cleaned off some white substance ?excess skin? this morning and noticed it was red so came for e valuation. she notse it is alittle more warm to the touch as well. States she noticed some swelling in the apst, but wasnt sure if it was more than usual until I asked her. Notes it was slightly red in the past, but not really warm. She cristi any fever/chills, nv, cp, sob, abd pain back pain, leg pain. Pt hasnt seen any doctors for erassessment due to the pandemic. ROS: Constitutional - no reported Fever, Chills, HEENT: no reported vision changes, sore throat Respiratory: no reported cough, sob, hemoptysis Cardiac: no reported chest pain, palpitations, light headedness, leg swelling Abd/GI: no reported abd pain, nausea, vomiting, blood per rectum, melena, diarrhea : no reported dysuria, frequency, discharge Musculskelatal - no reported back pain, L leg swelling skin - +erythema to L lower leg no reported bruising, rash neurological: no reported headache, numbness, focal weakness, tingling, ataxia, hematologic: no reported easy bruising, easy bleeding Physical Exam: GENERAL: The patient is awake, alert, and fully oriented, Nontoxic - in no acute distress. LUNGS: Breath sounds equal, clear to auscultation bilaterally. No wheezes, no rhonchi, no rales. HEART: Regular rate and rhythm, normal S1 and S2 without murmur, rub or gallop. ABDOMEN: Soft, nontender, No guarding, no rebound. No CVA tenderness EXTREMITIES: L leg, 13x8cm area of erythema surrounding eschar, non flcutant, mildly warm to the touch, mildly tender to palpation, +2 pitting edema, neg homans no calf tenderness NEUROLOGICAL: No facial assymetry, Normal speech, PSYCH: Normal mood, normal affect. SKIN: Warm, Dry, normal turgor, Suspect cellulitis overlying prior eschar/laceration will ck basic labs will obtain DVT study will give abx pt has an appointment with her PMD next (in 7 days) if workup unremarkable, anticpate dc with PO abx and PMD fu Past History - Medical History Allergies/Adverse Reactions: Allergies Allergy/AdvReac Type Severity Reaction Status Date / Time Antihistamines - Ethanolamine Allergy Intermediate Verified 04/28/20 12:05 ciprofloxacin [From Cipro] Allergy Intermediate Verified 04/28/20 12:05 codeine Allergy Intermediate Verified 04/28/20 12:05 erythromycin base Allergy Intermediate Verified 04/28/20 12:05 morphine Allergy Intermediate Verified 04/28/20 12:05 Penicillins Allergy Intermediate Verified 04/28/20 12:05 sulfur [From Sulfur-8] Allergy Intermediate Verified 04/28/20 12:05 Home Medications: Ambulatory Orders Atorvastatin Ca [Lipitor] 10 mg PO HS 08/29/16 Candesartan Cilexetil [Atacand -] 16 mg PO HS 08/29/16 Ascorbic Acid [Vitamin C] 1,000 mg PO DAILY 10/19/17 Aspirin 81 mg PO HS 10/19/17 Cholecalciferol (Vitamin D3) [Vitamin D3] 1,000 unit PO BID 10/19/17 Mv-Mins/Folic Acid/Guarana/Caf [One Daily Tablet] 1 each PO DAILY 10/19/17 Metoprolol Succinate [Toprol XL -] 12.5 mg PO AM 08/31/19 Clindamycin [Cleocin -] 450 mg PO Q8H #63 capsule 04/28/20 Metoprolol Succinate [Toprol Xl] 25 mg PO HS 04/28/20 Cancer: Yes (CANCER 2008 NON HODGKINS LYMPHOMA) Cardiac Disorders: Yes (STENT) COPD: No HTN: Yes Hypercholesterolemia: Yes - Surgical History Cardiac Surgery: Yes (1 STENT) - Immunization History Immunization Up to Date: Yes - Psycho-Social/Smoking History Smoking History: Never smoked Have you smoked in the past 12 months: No Number of Cigarettes Smoked Daily: 0 Cigars Per Day: 0 ED Treatment Course - LABORATORY CBC & Chemistry Diagram: 04/28/20 12:30 04/28/20 12:30 - RADIOLOGY Radiology Studies Ordered: Category Date Time Status DUPLEX VASCUL US-1 LEG [US] Stat Ultrasound 04/28/20 12:19 Ordered Medical Decision Making - Medical Decision Making 04/28/20 14:46 labs reviewed US neg will dc with clindaymycin due to the pts allergies pmd fu on 05/05 I discussed the physical exam findings, ancillary test results and final diagnoses with the patient. I answered all of the patient's questions. The pat ient was satisfied with the care received and felt comfortable with the discharge plan and treatment plan. The patient will call their primary care physician within 24 hours to arrange follow-up and will return to the Emergency Department with any new, persistent or worsening symptoms. Discharge - Discharge Information Problems reviewed: Yes Clinical Impression/Diagnosis: Cellulitis Qualifiers: Site of cellulitis: extremity Site of cellulitis of extremity: lower extremity Laterality: left Qualified Code(s): L03.116 - Cellulitis of left lower limb Condition: Stable Disposition: HOME - Admission No - Follow up/Referral Referrals: aRnjana Pete [Primary Care Provider] - - Patient Discharge Instructions Patient Printed Discharge Instructions: DI for Cellulitis -- Adult Additional Instructions: Return to the emergency department immediately with ANY new, persistent or worsening symptoms Including any worsening swelling or redness, pain, fevers or any other concerns. Take antibiotics as prescribed You MUST call and follow up with your doctor next week as previously scheduled for further evaluation of your symptoms. Results were discussed with you. Please make sure your doctor reviews the results of your emergency evaluation. Your Emergency Department visit is not complete without a follow up with your doctor. Print Language: FIJIAN - Post Discharge Activity
[2020-04-28 12:25] VITALS: BP 163/80; PULSE 88; TEMP 99; BMI 24.0
[2020-04-28 13:11] LABS: ALBUMIN 3.7 g/dl (3.4-5.0); BILIRUBIN,TOTAL 0.9 mg/dl (0.2-1); CALCIUM 9.1 mg/dl (8.5-10); POTASSIUM 4.6 mmol/L (3.5-5.1); TOT PROT 6.8 g/dl (6.4-8.2)
[2020-04-28] MEDS ORDERED: CLINDAMYCIN HCL 150 MG CAPSULE (FP) PO ONE (14:15)
[2020-04-28] MEDS ORDERED: CLINDAMYCIN HCL 150 MG CAPSULE (FP) ONE (14:21)
[2020-04-28 14:38] LABS: BASO % 0.3 % (0-2.0); EOS % 0.2 % (0-4.5); HEMOGLOBIN 12.5 GM/dL (10.7-15.3); LYMPH % 13.6 % (8-40); MCH 31.4 pg (25.7-33.7); MEAN CELL VOLUME 95.1 fl (80-96); MEAN PLT VOLUME 7.7 fl (7.5-11.1); MONO % 10.3 % (3.8-10.2); NEUT % 75.6 % (42.8-82.8); PLATELET COUNT 286 K/MM3 (134-434); RBC 3.99 M/mm3 (3.60-5.2); RDW 12.6 % (11.6-15.6)
== END 2020-04-28 15:02 | disposition home or self-care (01) ==
LOC: FER 12:02
DX: L03.116 Cellulitis of left lower limb (principal)
CPT/HCPCS: 36415; 80053; 85025; 93971-TC; 99284-25

== ENCOUNTER 2021-03-29 08:41 | Emergency (ER) | payer OTHER ==
[2021-03-29 09:05] VITALS: TEMP 98.8; BMI 23.1
[2021-03-29 09:49] LABS: BASO % 0.8 % (0-2.0); EOS % 0.3 % (0-4.5); HEMATOCRIT 41.2 % (32.4-45.2); HEMOGLOBIN 14.1 GM/dl (10.7-15.3); LYMPH % 21.4 % (8-40); MCH 31.9 pg (25.7-33.7); MCHC 34.3 g/dl (32.0-36.0); MEAN CELL VOLUME 93.1 fl (80-96); MEAN PLT VOLUME 7.7 fl (7.5-11.1); MONO % 10.2 % (3.8-10.2); NEUT % 67.3 % (42.8-82.8); PLATELET COUNT 245 K/MM3 (134-434); RBC 4.43 M/mm3 (3.60-5.2); RDW 12.3 % (11.6-15.6); WHITE BLOOD COUNT 5.5 K/mm3 (4.0-10.8)
[2021-03-29 09:56] LABS: ALBUMIN 4.2 g/dl (3.4-5.0); ALK PHOS 65 U/L (45-117); ANION GAP 9 MMOL/L (8-16); BILIRUBIN,TOTAL 0.8 mg/dl (0.2-1); CALCIUM 9.6 mg/dl (8.5-10); CHLORIDE 102 mmol/L (98-107); CO2 26 mmol/L (21-32); CREATININE 0.9 mg/dl (0.55-1.3); GLUCOSE,RANDOM 97 mg/dl (74-106); SGOT/AST 27 U/L (15-37); SGPT/ALT 20 U/L (13-61); SODIUM 137 mmol/L (136-145); TOT PROT 7.3 g/dl (6.4-8.2)
[2021-03-29 09:59] LABS: ACTIVATED PTT 27.7 SECONDS (25.2-36.5)
[2021-03-29 10:03] LABS: INR 1.13 (0.82-1.09); PROTHROMBIN TIME (PATIENT) 12.5 SEC (10.2-13.0)
[2021-03-29 10:06] LABS: EPITHELIAL CELLS FEW /hpf
[2021-03-29] MEDS ORDERED: NITROFURANTOIN MACROCRYSTAL 50 MG CAPSULE (FP) PO SCH (11:00)
[2021-03-29] MEDS ORDERED: NITROFURANTOIN MACROCRYSTAL 50 MG CAPSULE (FP) ONE (12:09)
[2021-03-29 12:20] VITALS: BP 132/74; PULSE 78
== END 2021-03-29 12:20 | disposition home or self-care (01) ==
LOC: FER 08:41
DX: N30.00 Acute cystitis without hematuria (principal)
CPT/HCPCS: 36415; 70450-TC; 80053; 81003; 81015; 84484; 85025; 85610; 85730; 87086; 87186; 99285-25

== ENCOUNTER 2022-08-14 08:14 | Emergency (ER) | payer OTHER ==
[2022-08-14 08:31] VITALS: BP 163/88; PULSE 89; RESP 20; TEMP 98.5; BMI 26.6
[2022-08-14 09:19] LABS: EPITHELIAL CELLS RARE /hpf
== END 2022-08-14 10:09 | disposition home or self-care (01) ==
LOC: FER 08:14
DX: N30.00 Acute cystitis without hematuria (principal)
CPT/HCPCS: 81003; 81015; 87086; 99283-25

== ENCOUNTER 2022-12-27 11:46 | Observation (INO) | payer OTHER ==
[2022-12-27 13:16] LABS: HEMATOCRIT 39.9 % (32.4-45.2); HEMOGLOBIN 13.3 G/dL (10.7-15.3); MCHC 33.3 g/dl (32.0-36.0); MEAN PLT VOLUME 7.7 fl (7.5-11.1); PLATELET COUNT 198.4 10^3/uL (134-434); RBC 4.29 10^6/uL (3.60-5.2); RDW 13.8 % (11.6-15.6); WHITE BLOOD COUNT 8.7 10^3/uL (4.0-10.8)
[2022-12-27 13:21] LABS: PLATELET ESTIMATE ADEQUATE
[2022-12-27] MEDS ORDERED: SODIUM CHLORIDE 0.9% 500 ML INFUS.BAG IV ONE (13:21)
[2022-12-27 13:24] LABS: ALBUMIN 3.3 g/dl (3.4-5.0); BILIRUBIN,TOTAL 0.6 mg/dl (0.2-1); CALCIUM 8.8 mg/dl (8.5-10); TOT PROT 6.4 g/dl (6.4-8.2)
[2022-12-27] MEDS ORDERED: CEFTRIAXONE 1 GM in DEXTROSE 5%-WATER - 100 ML IVPB ONE (13:39)
[2022-12-27] MEDS ORDERED: cefTRIAXone SODIUM 1 GM VIAL ONE (13:52)
[2022-12-27] MEDS ORDERED: DIPHTH,PERTUSS(ACELL),TET 0.5 ML DISP.SYRIN IM ONE ×2 (15:17→15:21)
[2022-12-27 19:20] VITALS: BMI 23.2
[2022-12-27] MEDS: POLYETHYLENE GLYCOL (HEALTHYLAX) 3350 17 GM PACKET PO SCH (21:40)
[2022-12-27] MEDS: DOCUSATE SODIUM 100 MG CAPSULE (FP) PO SCH (21:41)
[2022-12-27] MEDS: SENNOSIDES 8.6MG TABLET (FP) PO SCH (21:41)
[2022-12-27] MEDS ORDERED: ATORVASTATIN CA 10 MG TABLET (FP) PO SCH (22:00)
[2022-12-28] MEDS: DOCUSATE SODIUM 100 MG CAPSULE (FP) PO SCH ×2 (05:55→09:52)
[2022-12-28 06:32] VITALS: RESP 18
[2022-12-28] MEDS: POLYETHYLENE GLYCOL (HEALTHYLAX) 3350 17 GM PACKET PO SCH (09:51)
[2022-12-28] MEDS: SENNOSIDES 8.6MG TABLET (FP) PO SCH (09:53)
[2022-12-28] MEDS ORDERED: CEFTRIAXONE 1 GM in DEXTROSE 5%-WATER - 50 ML IVPB SCH (10:00)
[2022-12-28] MEDS ORDERED: metoPROLOL SUCCINATE 25 MG TAB.SR.24H (FP) PO SCH (10:00)
[2022-12-28] MEDS ORDERED: ASPIRIN 81 MG CHEWABLE TABLETS PO SCH (10:00)
[2022-12-28] MEDS ORDERED: ENOXAPARIN NA (PORCINE) 40 MG/0.4 ML DISP.SYRIN SQ SCH (10:00)
[2022-12-28 10:44] VITALS: BP 124/65; PULSE 77; TEMP 98.1
== END 2022-12-28 13:22 | disposition home or self-care (01) ==
LOC: FER 11:46 → FM/S 13:38 → OBSVTOIN 17:05 → INTOOBSV 17:05 → FM/S 18:00
PROC: 3E03329 Introduction of Other Anti-infective into Peripheral Vein, Percutaneous Approach (ICD-10-PCS; principal; 2022-12-27)
PROC: 3E013GC Introduction of Other Therapeutic Substance into Subcutaneous Tissue, Percutaneous Approach (ICD-10-PCS; 2022-12-27)
PROC: 3E0234Z Introduction of Serum, Toxoid and Vaccine into Muscle, Percutaneous Approach (ICD-10-PCS; 2022-12-27)
DX: R55 Syncope and collapse (principal); N30.00 Acute cystitis without hematuria; R14.0 Abdominal distension (gaseous); I12.9 Hypertensive chronic kidney disease with stage 1 through stage 4 chronic kidney disease, or unspecified chronic kidney disease; N18.9 Chronic kidney disease, unspecified; E78.5 Hyperlipidemia, unspecified; I25.10 Atherosclerotic heart disease of native coronary artery without angina pectoris; L03.116 Cellulitis of left lower limb; E87.1 Hypo-osmolality and hyponatremia; M25.561 Pain in right knee; G57.91 Unspecified mononeuropathy of right lower limb; G57.92 Unspecified mononeuropathy of left lower limb; I47.1 Supraventricular tachycardia; S81.012A Laceration without foreign body, left knee, initial encounter; W19.XXXA Unspecified fall, initial encounter; Y93.9 Activity, unspecified; Y92.9 Unspecified place or not applicable
CPT/HCPCS: 0241U-QW; 36415; 70450-TC; 71045-TC-FY; 72125-TC; 74018-TC-FY; 80053; 81003; 81015; 82962; 84484; 85027; 87086; 90471; 90715; 93005; 93880-TC; 93970-TC; 96365; 96372; 96375; 97116-GP; 97162-GP; 99285-25; G0378

== ENCOUNTER 2023-01-15 08:21 | Observation (INO) | payer OTHER ==
[2023-01-15 09:45] LABS: EPITHELIAL CELLS FEW /hpf
[2023-01-15 09:55] LABS: HEMATOCRIT 39.3 % (32.4-45.2); HEMOGLOBIN 13.2 G/dL (10.7-15.3); MCH 30.8 pg (25.7-33.7); MCHC 33.5 g/dl (32.0-36.0); MEAN PLT VOLUME 7.7 fl (7.5-11.1); PLATELET COUNT 219.6 10^3/uL (134-434); RBC 4.27 10^6/uL (3.60-5.2); RDW 14.5 % (11.6-15.6); WHITE BLOOD COUNT 4.9 10^3/uL (4.0-10.8)
[2023-01-15 10:12] LABS: ALBUMIN 3.6 g/dl (3.4-5.0); CALCIUM 9.2 mg/dl (8.5-10); TOT PROT 6.4 g/dl (6.4-8.2)
[2023-01-15] MEDS ORDERED: CEFTRIAXONE 1,000 MG in DEXTROSE 5%-WATER - 50 ML IVPB ONE (10:30)
[2023-01-15] MEDS ORDERED: cefTRIAXone SODIUM 1 GM VIAL ONE (11:27)
[2023-01-15 11:57] LABS: PLATELET ESTIMATE ADEQUATE
[2023-01-15 17:25] VITALS: BMI 22.8
[2023-01-15] MEDS: ESCITALOPRAM OXALATE 10 MG TABLET PO SCH (17:33)
[2023-01-15] MEDS: CHOLECALCIFEROL (VIT D3) 1,000 UNIT (25 MCG) TABLET PO SCH (21:50)
[2023-01-15] MEDS ORDERED: ASPIRIN 81 MG CHEWABLE TABLETS PO SCH (22:00)
[2023-01-15] MEDS ORDERED: ATORVASTATIN CA 10 MG TABLET (FP) PO SCH (22:00)
[2023-01-15] MEDS ORDERED: metoPROLOL SUCCINATE 25 MG TAB.SR.24H (FP) PO SCH (22:00)
[2023-01-16 00:12] VITALS: RESP 17
[2023-01-16 08:47] LABS: CALCIUM 8.8 mg/dl (8.5-10); MAGNESIUM 2.1 mg/dL (1.8-2.4); PHOSPHOROUS 3.1 mg/dl (2.5-4.9)
[2023-01-16] MEDS: ESCITALOPRAM OXALATE 10 MG TABLET PO SCH (09:19)
[2023-01-16] MEDS: CHOLECALCIFEROL (VIT D3) 1,000 UNIT (25 MCG) TABLET PO SCH (09:19)
[2023-01-16 09:33] VITALS: BP 110/68; TEMP 97.6
[2023-01-16] MEDS ORDERED: ASCORBIC ACID 500 MG TABLET (FP) PO SCH (10:00)
[2023-01-16] MEDS ORDERED: [UNRECOGNIZED DRUG - OTHER] PO SCH (10:00)
[2023-01-16] MEDS ORDERED: CEFTRIAXONE 1 GM in DEXTROSE 5%-WATER - 50 ML IVPB SCH (10:00)
[2023-01-16 10:05] VITALS: PULSE 72
[2023-01-16 10:33] LABS: BASO % 0.6 % (0-2.0); EOS % 0.5 % (0-4.5); HEMATOCRIT 37.8 % (32.4-45.2); HEMOGLOBIN 12.8 GM/dL (10.7-15.3); LYMPH % 24.2 % (8-40); MCH 30.6 pg (25.7-33.7); MCHC 33.9 g/dl (32.0-36.0); MEAN CELL VOLUME 90.4 fl (80-96); MEAN PLT VOLUME 7.8 fl (7.5-11.1); MONO % 18.6 % (3.8-10.2); NEUT % 56.1 % (42.8-82.8); PLATELET COUNT 242 10^3/uL (134-434); RBC 4.18 M/mm3 (3.60-5.2); WHITE BLOOD COUNT 4.7 K/mm3 (4.0-10.0)
== END 2023-01-16 14:07 | disposition home or self-care (01) ==
LOC: FER 08:21 → FM/S 11:33 → UNDOADMOB 11:33 → INTOOBSV 11:33 → FM/S 14:25
PROVIDERS: ADMIT Internal Medicine; ATTEND Internal Medicine
DX: N30.00 Acute cystitis without hematuria (principal); I47.9 Paroxysmal tachycardia, unspecified; I25.10 Atherosclerotic heart disease of native coronary artery without angina pectoris; Z95.1 Presence of aortocoronary bypass graft; R25.1 Tremor, unspecified; I10 Essential (primary) hypertension
CPT/HCPCS: 36415; 71045-TC-FY; 80048; 80053; 81003; 81015; 82306; 82607; 82746; 83735; 84100; 84439; 84443; 85025; 85027; 87086; 87186; 93005; 96365; 97116-GP; 97162-GP; 99285-25; C9803-CS; G0378; U0003; U0005

== ENCOUNTER 2023-01-26 08:33 | Inpatient (IN) | payer OTHER ==
[2023-01-26 09:01] VITALS: BMI 22.7
[2023-01-26] MEDS ORDERED: SODIUM CHLORIDE 0.9% 500 ML INFUS.BAG IV ONE (09:39)
[2023-01-26 10:16] LABS: BASO % 0.3 % (0-2.0); EOS % 0.4 % (0-4.5); HEMATOCRIT 38.7 % (32.4-45.2); HEMOGLOBIN 12.9 GM/dL (10.7-15.3); MCHC 33.2 g/dl (32.0-36.0); MEAN CELL VOLUME 90.3 fl (80-96); MEAN PLT VOLUME 7.6 fl (7.5-11.1); NEUT % 71.3 % (42.8-82.8); PLATELET COUNT 233 10^3/uL (134-434); RBC 4.28 M/mm3 (3.60-5.2); RDW 13.4 % (11.6-15.6)
[2023-01-26 10:29] LABS: CALCIUM 9.2 mg/dL (8.5-10.1)
[2023-01-26 10:30] LABS: ALBUMIN 3.3 g/dl (3.4-5.0); BLOOD UREA NITROGEN 29.7 mg/dL (7-18); MAGNESIUM 2.4 mg/dL (1.8-2.4)
[2023-01-26 10:33] LABS: CREATININE 0.9 mg/dL (0.55-1.3)
[2023-01-26 10:35] LABS: BILIRUBIN,TOTAL 0.9 mg/dL (0.2-1); TOT PROT 6.5 g/dl (6.4-8.2)
[2023-01-26 11:09] LABS: EPI CELLS 1 /uL (0-25.1); HYALINE CASTS 0 /uL (0-3.1); URINE APPEARANCE CLOUDY; URINE BACTERIA 750 /uL (0-1359); URINE BILIRUBIN NEGATIVE (NEGATIVE); URINE COLOR YELLOW; URINE GLUCOSE (UA) NEGATIVE (NEGATIVE); URINE KETONE NEGATIVE (NEGATIVE); URINE LEUK ESTERASE 3+ (NEGATIVE); URINE NITRITE NEGATIVE (NEGATIVE); URINE PROTEIN 2+ (NEGATIVE); URINE RBC 63 /uL (0-23.9); URINE UROBILINOGEN 0.2 mg/dL (0.2-1.0); URINE WBC 3193 /uL (0-25.8)
[2023-01-26] MEDS ORDERED: CEFTRIAXONE 1,000 MG in DEXTROSE 5%-WATER - 50 ML IVPB ONE (11:35)
[2023-01-26] MEDS ORDERED: CEFTRIAXONE 1 GM/50 ML BAG ONE (12:08)
[2023-01-26] MEDS: ATORVASTATIN CA 10 MG TABLET (FP) PO SCH (22:34)
[2023-01-26] MEDS: LOSARTAN POTASSIUM 50 MG TABLET PO SCH (22:34)
[2023-01-26] MEDS: ASPIRIN 81 MG CHEWABLE TABLETS PO SCH (22:34)
[2023-01-26] MEDS: metoPROLOL SUCCINATE 25 MG TAB.SR.24H (FP) PO SCH (22:34)
[2023-01-26] MEDS: HEPARIN NA (PORCINE) 5,000 UNITS/ML 1ML VIAL SQ SCH (22:36)
[2023-01-27 09:54] LABS: BASO % 0.2 % (0-2.0); HEMATOCRIT 38.6 % (32.4-45.2); LYMPH % 10.5 % (8-40); MCH 30.6 pg (25.7-33.7); MCHC 33.7 g/dl (32.0-36.0); MEAN CELL VOLUME 90.9 fl (80-96); MEAN PLT VOLUME 7.5 fl (7.5-11.1); MONO % 9.8 % (3.8-10.2); NEUT % 78.5 % (42.8-82.8); PLATELET COUNT 229 10^3/uL (134-434); RBC 4.25 M/mm3 (3.60-5.2); RDW 13.4 % (11.6-15.6); WHITE BLOOD COUNT 6.9 K/mm3 (4.0-10.0)
[2023-01-27 10:13] LABS: CALCIUM 8.7 mg/dL (8.5-10.1)
[2023-01-27 10:14] LABS: BLOOD UREA NITROGEN 20.6 mg/dL (7-18)
[2023-01-27] MEDS: CEFTRIAXONE 1 GM in DEXTROSE 5%-WATER - 50 ML IVPB SCH (10:16)
[2023-01-27] MEDS: CHOLECALCIFEROL (VIT D3) 1,000 UNIT (25 MCG) TABLET PO SCH (10:16)
[2023-01-27 10:17] LABS: CREATININE 0.9 mg/dL (0.55-1.3)
[2023-01-27] MEDS: ASCORBIC ACID 500 MG TABLET (FP) PO SCH (10:17)
[2023-01-27] MEDS: ESCITALOPRAM OXALATE 10 MG TABLET PO SCH (10:17)
[2023-01-27] MEDS: HEPARIN NA (PORCINE) 5,000 UNITS/ML 1ML VIAL SQ SCH ×2 (10:27→22:20)
[2023-01-27] MEDS: ATORVASTATIN CA 10 MG TABLET (FP) PO SCH (22:15)
[2023-01-27] MEDS: LOSARTAN POTASSIUM 50 MG TABLET PO SCH (22:15)
[2023-01-27] MEDS: metoPROLOL SUCCINATE 25 MG TAB.SR.24H (FP) PO SCH (22:15)
[2023-01-27] MEDS: ASPIRIN 81 MG CHEWABLE TABLETS PO SCH (22:20)
[2023-01-28 08:32] LABS: BASO % 0.3 % (0-2.0); EOS % 2.2 % (0-4.5); HEMATOCRIT 38.3 % (32.4-45.2); LYMPH % 16.2 % (8-40); MCH 30.6 pg (25.7-33.7); MEAN CELL VOLUME 89.9 fl (80-96); MEAN PLT VOLUME 7.8 fl (7.5-11.1); MONO % 18.1 % (3.8-10.2); NEUT % 63.2 % (42.8-82.8); PLATELET COUNT 223 10^3/uL (134-434); RBC 4.26 M/mm3 (3.60-5.2); RDW 13.3 % (11.6-15.6); WHITE BLOOD COUNT 6.3 K/mm3 (4.0-10.0)
[2023-01-28] MEDS: ASCORBIC ACID 500 MG TABLET (FP) PO SCH (09:16)
[2023-01-28] MEDS: CHOLECALCIFEROL (VIT D3) 1,000 UNIT (25 MCG) TABLET PO SCH (09:16)
[2023-01-28] MEDS: ESCITALOPRAM OXALATE 10 MG TABLET PO SCH (09:16)
[2023-01-28] MEDS: HEPARIN NA (PORCINE) 5,000 UNITS/ML 1ML VIAL SQ SCH ×2 (09:17→21:37)
[2023-01-28] MEDS: CEFTRIAXONE 1 GM in DEXTROSE 5%-WATER - 50 ML IVPB SCH (09:17)
[2023-01-28 09:26] LABS: CALCIUM 8.5 mg/dL (8.5-10.1)
[2023-01-28 09:27] LABS: BLOOD UREA NITROGEN 15.4 mg/dL (7-18)
[2023-01-28 09:30] LABS: CREATININE 0.8 mg/dL (0.55-1.3)
[2023-01-28] MEDS: metoPROLOL SUCCINATE 25 MG TAB.SR.24H (FP) PO SCH (21:38)
[2023-01-28] MEDS: ASPIRIN 81 MG CHEWABLE TABLETS PO SCH (21:38)
[2023-01-28] MEDS: ATORVASTATIN CA 10 MG TABLET (FP) PO SCH (21:38)
[2023-01-28] MEDS: LOSARTAN POTASSIUM 50 MG TABLET PO SCH (21:39)
[2023-01-29 06:36] VITALS: RESP 18
[2023-01-29] MEDS ORDERED: ONDANSETRON 4 MG/2 ML VIAL IVPUSH PRN ×2 (07:42→08:54)
[2023-01-29] MEDS ORDERED: oxyCODONE HCL 5 MG TABLET PO PRN ×2 (07:42→08:54)
[2023-01-29] MEDS ORDERED: PROPOFOL 20 ML ONE (07:52)
[2023-01-29] MEDS ORDERED: ONDANSETRON 4 MG/2 ML VIAL ONE (08:10)
[2023-01-29] MEDS ORDERED: DEXAMETHASONE SOD PHOSPHATE 4 MG/1 ML VIAL ONE (08:10)
[2023-01-29] MEDS ORDERED: KETOROLAC TROMETHAMINE 30 MG/1 ML VIAL ONE (08:10)
[2023-01-29] MEDS ORDERED: IOHEXOL 300 MG/ML INFUS..BTL IJ ONE (08:10)
[2023-01-29] MEDS ORDERED: cefTRIAXone SODIUM 1 GM VIAL IVPB ONE (08:15)
[2023-01-29] MEDS ORDERED: MULTIVITAMINS THER W-MINERALS COMBO TABLET (FP) PO SCH (10:00)
[2023-01-29] MEDS: CHOLECALCIFEROL (VIT D3) 1,000 UNIT (25 MCG) TABLET PO SCH (10:01)
[2023-01-29] MEDS: MULTIVITAMINS THER W-MINERALS COMBO TABLET (FP) PO SCH (10:01)
[2023-01-29] MEDS: CEFTRIAXONE 1 GM in DEXTROSE 5%-WATER - 50 ML IVPB SCH (10:01)
[2023-01-29] MEDS: HEPARIN NA (PORCINE) 5,000 UNITS/ML 1ML VIAL SQ SCH ×2 (10:02→21:24)
[2023-01-29] MEDS: ESCITALOPRAM OXALATE 10 MG TABLET PO SCH (10:02)
[2023-01-29] MEDS: ASCORBIC ACID 500 MG TABLET (FP) PO SCH (10:02)
[2023-01-29] MEDS ORDERED: ACETAMINOPHEN 325 MG TABLET (FP) PO PRN (12:04)
[2023-01-29] MEDS ORDERED: POLYETHYLENE GLYCOL (HEALTHYLAX) 3350 17 GM PACKET PO PRN (12:06)
[2023-01-29] MEDS: LOSARTAN POTASSIUM 50 MG TABLET PO SCH (21:23)
[2023-01-29] MEDS: ATORVASTATIN CA 10 MG TABLET (FP) PO SCH (21:24)
[2023-01-29] MEDS: metoPROLOL SUCCINATE 25 MG TAB.SR.24H (FP) PO SCH (21:24)
[2023-01-29] MEDS: ASPIRIN 81 MG CHEWABLE TABLETS PO SCH (21:24)
[2023-01-30] MEDS: ASCORBIC ACID 500 MG TABLET (FP) PO SCH (09:14)
[2023-01-30] MEDS: CEFTRIAXONE 1 GM in DEXTROSE 5%-WATER - 50 ML IVPB SCH (09:14)
[2023-01-30] MEDS: MULTIVITAMINS THER W-MINERALS COMBO TABLET (FP) PO SCH (09:14)
[2023-01-30] MEDS: CHOLECALCIFEROL (VIT D3) 1,000 UNIT (25 MCG) TABLET PO SCH (09:14)
[2023-01-30] MEDS: HEPARIN NA (PORCINE) 5,000 UNITS/ML 1ML VIAL SQ SCH ×2 (09:15→21:15)
[2023-01-30] MEDS: ESCITALOPRAM OXALATE 10 MG TABLET PO SCH (09:15)
[2023-01-30] MEDS ORDERED: MAGNESIUM HYDROX 2400MG/30ML ORAL SUSPENSION 30 ML CUP PO ONE (16:12)
[2023-01-30] MEDS ORDERED: POLYETHYLENE GLYCOL (HEALTHYLAX) 3350 17 GM PACKET PO PRN (16:26)
[2023-01-30] MEDS: ASPIRIN 81 MG CHEWABLE TABLETS PO SCH (21:15)
[2023-01-30] MEDS: LOSARTAN POTASSIUM 50 MG TABLET PO SCH (21:15)
[2023-01-30] MEDS: metoPROLOL SUCCINATE 25 MG TAB.SR.24H (FP) PO SCH (21:16)
[2023-01-30] MEDS: ATORVASTATIN CA 10 MG TABLET (FP) PO SCH (21:16)
[2023-01-30] MEDS ORDERED: SENNOSIDES 8.8 MG/5 ML SYRUP PO SCH (22:00)
[2023-01-31 09:18] LABS: BASO % 0.7 % (0-2.0); EOS % 5.5 % (0-4.5); HEMOGLOBIN 12.6 GM/dL (10.7-15.3); LYMPH % 24.9 % (8-40); MCH 30.4 pg (25.7-33.7); MEAN CELL VOLUME 89.4 fl (80-96); MONO % 12.6 % (3.8-10.2); NEUT % 56.3 % (42.8-82.8); PLATELET COUNT 252 10^3/uL (134-434); RBC 4.14 M/mm3 (3.60-5.2); RDW 13.3 % (11.6-15.6); WHITE BLOOD COUNT 5.5 K/mm3 (4.0-10.0)
[2023-01-31] MEDS: ESCITALOPRAM OXALATE 10 MG TABLET PO SCH (09:44)
[2023-01-31] MEDS: CEFTRIAXONE 1 GM in DEXTROSE 5%-WATER - 50 ML IVPB SCH (09:44)
[2023-01-31] MEDS: HEPARIN NA (PORCINE) 5,000 UNITS/ML 1ML VIAL SQ SCH ×2 (09:45→22:01)
[2023-01-31] MEDS: MULTIVITAMINS THER W-MINERALS COMBO TABLET (FP) PO SCH (09:45)
[2023-01-31] MEDS: ASCORBIC ACID 500 MG TABLET (FP) PO SCH (09:45)
[2023-01-31] MEDS: CHOLECALCIFEROL (VIT D3) 1,000 UNIT (25 MCG) TABLET PO SCH (09:45)
[2023-01-31 09:51] LABS: CALCIUM 8.6 mg/dL (8.5-10.1)
[2023-01-31 09:52] LABS: BLOOD UREA NITROGEN 29.6 mg/dL (7-18)
[2023-01-31 09:55] LABS: CREATININE 0.9 mg/dL (0.55-1.3)
[2023-01-31 09:56] LABS: TOT PROT 5.8 g/dl (6.4-8.2)
[2023-01-31 09:57] LABS: BILIRUBIN,TOTAL 0.4 mg/dL (0.2-1)
[2023-01-31 09:59] LABS: ALBUMIN 2.6 g/dl (3.4-5.0)
[2023-01-31] MEDS ORDERED: POLYETHYLENE GLYCOL (HEALTHYLAX) 3350 17 GM PACKET PO SCH (10:00)
[2023-01-31] MEDS: LOSARTAN POTASSIUM 50 MG TABLET PO SCH (22:02)
[2023-01-31] MEDS: metoPROLOL SUCCINATE 25 MG TAB.SR.24H (FP) PO SCH (22:02)
[2023-01-31] MEDS: ATORVASTATIN CA 10 MG TABLET (FP) PO SCH (22:02)
[2023-01-31] MEDS: ASPIRIN 81 MG CHEWABLE TABLETS PO SCH (22:02)
[2023-02-01] MEDS: CEFTRIAXONE 1 GM in DEXTROSE 5%-WATER - 50 ML IVPB SCH (10:12)
[2023-02-01] MEDS: CHOLECALCIFEROL (VIT D3) 1,000 UNIT (25 MCG) TABLET PO SCH (10:13)
[2023-02-01] MEDS: ASCORBIC ACID 500 MG TABLET (FP) PO SCH (10:13)
[2023-02-01] MEDS: MULTIVITAMINS THER W-MINERALS COMBO TABLET (FP) PO SCH (10:13)
[2023-02-01] MEDS: HEPARIN NA (PORCINE) 5,000 UNITS/ML 1ML VIAL SQ SCH ×2 (10:13→10:22)
[2023-02-01] MEDS: ESCITALOPRAM OXALATE 10 MG TABLET PO SCH (10:13)
[2023-02-01 11:07] VITALS: BP 109/60; PULSE 80; TEMP 98
== END 2023-02-01 12:04 | disposition home or self-care (01) | DRG 690 ==
LOC: JER 08:33 → JERBED 16:57 → OBSVTOIN 16:57 → J5S 22:12
PROVIDERS: ADMIT Internal Medicine
PROC: BT1DYZZ Fluoroscopy of Right Kidney, Ureter and Bladder using Other Contrast (ICD-10-PCS; principal; 2023-01-29 07:30)
DX: N39.0 Urinary tract infection, site not specified (principal); N13.4 Hydroureter; N13.30 Unspecified hydronephrosis; I13.10 Hypertensive heart and chronic kidney disease without heart failure, with stage 1 through stage 4 chronic kidney disease, or unspecified chronic kidney disease; I25.10 Atherosclerotic heart disease of native coronary artery without angina pectoris; R33.9 Retention of urine, unspecified; J44.9 Chronic obstructive pulmonary disease, unspecified; N18.9 Chronic kidney disease, unspecified; K59.00 Constipation, unspecified; B96.20 Unspecified Escherichia coli [E. coli] as the cause of diseases classified elsewhere; K57.90 Diverticulosis of intestine, part unspecified, without perforation or abscess without bleeding
CPT/HCPCS: 0241U-QW; 36415; 74176-TC; 76000-TC-FY; 80048; 80053; 81003; 82550; 83735; 84484; 85025; 87086; 87186; 93005; 93010; 94760; 97116-GP; 97162-GP; 99285-25; C1758; C1769; C9803-CS; J1644; U0003; U0005

== ENCOUNTER 2023-03-26 13:33 | Emergency (ER) | payer OTHER ==
[2023-03-26 13:49] VITALS: BP 133/81; PULSE 68; RESP 20; TEMP 98.5; BMI 21.9
== END 2023-03-26 17:07 | disposition home or self-care (01) ==
LOC: FER 13:33
DX: Z04.3 Encounter for examination and observation following other accident (principal)
CPT/HCPCS: 70450-TC; 71045-TC-FY; 72125-TC; 72131-TC; 73521-TC-FY; 99284-25

== ENCOUNTER 2023-08-18 07:45 | Observation (INO) | payer OTHER ==
[2023-08-18 09:36] LABS: HEMATOCRIT 41.5 % (32.4-45.2); HEMOGLOBIN 13.6 G/dL (10.7-15.3); MCH 31.3 pg (25.7-33.7); MCHC 32.8 g/dl (32.0-36.0); MEAN CELL VOLUME 95.3 fl (80-96); MEAN PLT VOLUME 8.1 fl (7.5-11.1); PLATELET COUNT 195.9 10^3/uL (134-434); RBC 4.35 10^6/uL (3.60-5.2); RDW 13.8 % (11.6-15.6); WHITE BLOOD COUNT 5.2 10^3/uL (4.0-10.8)
[2023-08-18 09:42] LABS: INR 1.07 (0.83-1.09); PROTHROMBIN TIME (PATIENT) 12.4 SEC (9.7-13.0)
[2023-08-18 09:45] LABS: ACTIVATED PTT 30.6 SECONDS (25.2-36.5)
[2023-08-18 10:06] LABS: ALBUMIN 3.9 g/dl (3.4-5.0); BILIRUBIN,TOTAL 0.7 mg/dl (0.2-1); BLOOD UREA NITROGEN 31.1 mg/dl (7-18); CALCIUM 9.2 mg/dl (8.5-10.1); CREATININE 0.9 mg/dl (0.6-1.3); MAGNESIUM 2.2 mg/dL (1.8-2.4); POTASSIUM 4.6 mmol/L (3.5-5.1); SGOT/AST 25.115 U/L (15-37); SGPT/ALT 14.678 U/L (7-52); TOT PROT 6.6 g/dl (6.4-8.2)
[2023-08-18 10:30] LABS: PLATELET ESTIMATE ADEQUATE
[2023-08-18] MEDS ORDERED: CEFTRIAXONE 1 GM in DEXTROSE 5%-WATER - 100 ML IVPB ONE (10:41)
[2023-08-18] MEDS ORDERED: SODIUM CHLORIDE 0.9% 1000 ML INFUS.BAG IV ONE (10:52)
[2023-08-18 11:03] LABS: VENOUS BASE EXCESS -2.5 mmol/L (-2-2); VENOUS O2 SATURATION 89.2 % (70-80); VENOUS PH 7.384 (7.310-7.410)
[2023-08-18] MEDS ORDERED: cefTRIAXone SODIUM 1 GM VIAL ONE (11:05)
[2023-08-18 13:40] VITALS: BMI 23.6
[2023-08-18] MEDS ORDERED: metoPROLOL SUCCINATE 25 MG TAB.SR.24H (FP) PO SCH (22:00)
[2023-08-18] MEDS ORDERED: ATORVASTATIN CA 20 MG TABLET (FP) PO SCH (22:00)
[2023-08-19 02:15] VITALS: RESP 18
[2023-08-19 09:31] LABS: ALBUMIN 3.7 g/dl (3.4-5.0); BILIRUBIN,TOTAL 0.8 mg/dl (0.2-1); BLOOD UREA NITROGEN 21.5 mg/dl (7-18); CALCIUM 8.9 mg/dl (8.5-10.1); CREATININE 0.9 mg/dl (0.6-1.3); MAGNESIUM 2.2 mg/dL (1.8-2.4); PHOSPHOROUS 3.092 (2.5-4.9); POTASSIUM 4.8 mmol/L (3.5-5.1); SGOT/AST 21.001 U/L (15-37); SGPT/ALT 12.937 U/L (7-52); TOT PROT 6.1 g/dl (6.4-8.2)
[2023-08-19] MEDS ORDERED: CLOPIDOGREL BISULFATE 75 MG TABLET (FP) PO SCH (10:00)
[2023-08-19] MEDS ORDERED: MULTIVITAMINS (DAILY MVI) TABLET (FP) PO SCH (10:00)
[2023-08-19] MEDS ORDERED: ASPIRIN COATED 81 MG TABLET.EC PO SCH (10:00)
[2023-08-19] MEDS ORDERED: CEFTRIAXONE 1 GM in DEXTROSE 5%-WATER - 50 ML IVPB SCH (10:00)
[2023-08-19] MEDS ORDERED: FAMOTIDINE 20 MG TABLET PO SCH (10:00)
[2023-08-19 10:11] VITALS: BP 121/83; PULSE 70; TEMP 97.7
[2023-08-19 12:09] LABS: BASO % 0.6 % (0-2.0); EOS % 1.8 % (0-4.5); HEMATOCRIT 38.9 % (32.4-45.2); HEMOGLOBIN 12.8 GM/dL (10.7-15.3); LYMPH % 20.3 % (8-40); MCH 30.9 pg (25.7-33.7); MCHC 32.9 g/dl (32.0-36.0); MEAN CELL VOLUME 93.9 fl (80-96); MEAN PLT VOLUME 8.2 fl (7.5-11.1); MONO % 14.7 % (3.8-10.2); NEUT % 62.6 % (42.8-82.8); PLATELET COUNT 214 10^3/uL (134-434); RBC 4.14 M/mm3 (3.60-5.2); RDW 13.3 % (11.6-15.6); WHITE BLOOD COUNT 4.7 K/mm3 (4.0-10.0)
== END 2023-08-19 12:42 ==
LOC: FER 07:45 → FM/S 11:55
PROC: 3E03329 Introduction of Other Anti-infective into Peripheral Vein, Percutaneous Approach (ICD-10-PCS; principal; 2023-08-18)
PROC: 3E0337Z Introduction of Electrolytic and Water Balance Substance into Peripheral Vein, Percutaneous Approach (ICD-10-PCS; 2023-08-18)
DX: N39.0 Urinary tract infection, site not specified (principal); I25.10 Atherosclerotic heart disease of native coronary artery without angina pectoris; N18.9 Chronic kidney disease, unspecified; R53.1 Weakness; Z88.8 Allergy status to other drugs, medicaments and biological substances; Z88.5 Allergy status to narcotic agent; E78.00 Pure hypercholesterolemia, unspecified; Z95.5 Presence of coronary angioplasty implant and graft; C85.90 Non-Hodgkin lymphoma, unspecified, unspecified site
CPT/HCPCS: 0241U-QW; 36415; 71045-TC-FY; 80053; 81003; 81015; 82803; 83605; 83735; 84100; 84443; 84484; 85025; 85027; 85610; 85730; 86850; 86900; 86901; 87040; 87086; 87186; 93005; 96365; 96366; 97116-GP; 97162-GP; 99285-25; G0378

== ENCOUNTER 2023-10-13 11:39 | Emergency (ER) | payer OTHER ==
[2023-10-13 11:51] VITALS: BP 153/78; PULSE 70; RESP 16; TEMP 98.6; BMI 22.6
[2023-10-13] MEDS ORDERED: ACETAMINOPHEN 325 MG TABLET (FP) ONE (14:14)
[2023-10-13] MEDS ORDERED: ACETAMINOPHEN 325 MG TABLET (FP) PO ONE (14:15)
== END 2023-10-13 14:28 | disposition home or self-care (01) ==
LOC: FER 11:39
PROC: 0HQ0XZZ Repair Scalp Skin, External Approach (ICD-10-PCS; principal; 2023-10-13)
DX: S01.01XA Laceration without foreign body of scalp, initial encounter (principal); W10.8XXA Fall (on) (from) other stairs and steps, initial encounter
CPT/HCPCS: 70450-TC; 73130-TC-LT-FY; 99284-25

== ENCOUNTER 2023-10-22 17:02 | Emergency (ER) | payer OTHER ==
[2023-10-22 17:20] VITALS: BP 176/90; PULSE 80; RESP 16; TEMP 98; BMI 23.5
== END 2023-10-22 17:36 | disposition home or self-care (01) ==
LOC: FER 17:02
DX: Z48.02 Encounter for removal of sutures (principal)
CPT/HCPCS: 99281-25

== ENCOUNTER 2023-10-29 17:13 | Emergency (ER) | payer OTHER ==
[2023-10-29 17:53] VITALS: BMI 23.4
[2023-10-29 18:31] LABS: HEMATOCRIT 39.2 % (32.4-45.2); HEMOGLOBIN 12.8 G/dL (10.7-15.3); MCH 31.1 pg (25.7-33.7); MCHC 32.6 g/dl (32.0-36.0); MEAN CELL VOLUME 95.4 fl (80-96); MEAN PLT VOLUME 7.1 fl (7.5-11.1); PLATELET COUNT 262.3 10^3/uL (134-434); RBC 4.11 10^6/uL (3.60-5.2); RDW 13.9 % (11.6-15.6); WHITE BLOOD COUNT 7.7 10^3/uL (4.0-10.8)
[2023-10-29 18:47] LABS: BILIRUBIN,TOTAL 0.5 mg/dl (0.2-1); CALCIUM 9.3 mg/dl (8.5-10.1); CREATININE 0.8 mg/dl (0.6-1.3); POTASSIUM 4.3 mmol/L (3.5-5.1); TOT PROT 6.6 g/dl (6.4-8.2)
[2023-10-29 19:35] VITALS: BP 142/74; PULSE 84; RESP 16; TEMP 97.8
[2023-10-29 21:19] LABS: PLATELET ESTIMATE ADEQUATE
== END 2023-10-29 19:25 | disposition home or self-care (01) ==
LOC: FER 17:13
DX: R53.1 Weakness (principal)
CPT/HCPCS: 36415; 71045-TC-FY; 80053; 81003; 81015; 84484; 85027; 87086; 93005; 99285-25

== ENCOUNTER 2023-11-21 07:49 | Emergency (ER) | payer OTHER ==
[2023-11-21 07:59] VITALS: BP 141/82; PULSE 66; RESP 18; TEMP 98.8; BMI 23.8
[2023-11-21 08:49] LABS: HEMOGLOBIN 13.1 G/dL (10.7-15.3); MCH 30.9 pg (25.7-33.7); MCHC 32.7 g/dl (32.0-36.0); MEAN CELL VOLUME 94.9 fl (80-96); MEAN PLT VOLUME 7.3 fl (7.5-11.1); RBC 4.22 10^6/uL (3.60-5.2); WHITE BLOOD COUNT 5.3 10^3/uL (4.0-10.8)
[2023-11-21 08:59] LABS: PLATELET ESTIMATE ADEQUATE
[2023-11-21 09:04] LABS: EPITHELIAL CELLS 0-5 /hpf
[2023-11-21 09:18] LABS: ALBUMIN 3.9 g/dl (3.4-5.0); BILIRUBIN,TOTAL 0.8 mg/dl (0.2-1); CREATININE 0.8 mg/dl (0.6-1.3); POTASSIUM 4.2 mmol/L (3.5-5.1); TOT PROT 6.2 g/dl (6.4-8.2)
== END 2023-11-21 12:13 | disposition home or self-care (01) ==
LOC: FER 07:49
DX: R53.1 Weakness (principal); R00.2 Palpitations; R25.1 Tremor, unspecified
CPT/HCPCS: 36415; 80053; 81003; 81015; 82550; 84484; 85027; 87086; 93005; 99284-25

== ENCOUNTER 2023-12-21 07:17 | Emergency (ER) | payer OTHER ==
[2023-12-21 07:23] VITALS: BP 147/88; PULSE 70; RESP 17; TEMP 98.3; BMI 27.8
[2023-12-21 08:19] LABS: HEMATOCRIT 39.2 % (32.4-45.2); HEMOGLOBIN 13.3 G/dL (10.7-15.3); MCH 31.9 pg (25.7-33.7); MCHC 33.9 g/dl (32.0-36.0); MEAN CELL VOLUME 94.2 fl (80-96); MEAN PLT VOLUME 7.8 fl (7.5-11.1); PLATELET COUNT 220.2 10^3/uL (134-434); RBC 4.16 10^6/uL (3.60-5.2); RDW 13.6 % (11.6-15.6); WHITE BLOOD COUNT 5.6 10^3/uL (4.0-10.8)
[2023-12-21 08:29] LABS: PLATELET ESTIMATE ADEQUATE
[2023-12-21 08:34] LABS: CALCIUM 9.1 mg/dl (8.5-10.1); CREATININE 0.9 mg/dl (0.6-1.3); POTASSIUM 4.2 mmol/L (3.5-5.1)
[2023-12-21] MEDS ORDERED: cefTRIAXone SODIUM 1 GM VIAL ONE (08:38)
[2023-12-21] MEDS: SODIUM CHLORIDE 0.9% 500 ML INFUS.BAG IV ONE (08:42)
[2023-12-21 08:55] LABS: EPITHELIAL CELLS 0-5 /hpf
== END 2023-12-21 10:07 | disposition home or self-care (01) ==
LOC: FER 07:17
DX: R25.1 Tremor, unspecified (principal); N39.0 Urinary tract infection, site not specified; Z20.822 Contact with and (suspected) exposure to COVID-19
CPT/HCPCS: 0241U-QW; 36415; 80048; 81003; 81015; 85025; 87086; 99284-25

== ENCOUNTER 2023-12-23 04:54 | Emergency (ER) | payer OTHER ==
[2023-12-23 05:19] VITALS: BP 134/72; PULSE 78; RESP 20; TEMP 98.4; BMI 25.2
[2023-12-23] MEDS ORDERED: ACETAMINOPHEN 325 MG TABLET (FP) ONE ×2 (05:21→06:49)
[2023-12-23] MEDS: ACETAMINOPHEN 325 MG TABLET (FP) PO ONE ×2 (05:23→06:53)
== END 2023-12-23 07:36 | disposition home or self-care (01) ==
LOC: FER 04:54
DX: S30.0XXA Contusion of lower back and pelvis, initial encounter (principal); M53.3 Sacrococcygeal disorders, not elsewhere classified; W18.49XA Other slipping, tripping and stumbling without falling, initial encounter; Y93.89 Activity, other specified
CPT/HCPCS: 72220-TC-FY; 99283-25

== ENCOUNTER 2024-05-01 09:09 | Emergency (ER) | payer OTHER ==
[2024-05-01 09:21] VITALS: BP 155/79; PULSE 55; RESP 18; TEMP 97; BMI 26.3
== END 2024-05-01 11:42 | disposition home or self-care (01) ==
LOC: FER 09:09
DX: Z04.3 Encounter for examination and observation following other accident (principal); R22.42 Localized swelling, mass and lump, left lower limb; W01.0XXA Fall on same level from slipping, tripping and stumbling without subsequent striking against object, initial encounter; Y92.000 Kitchen of unspecified non-institutional (private) residence as the place of occurrence of the external cause
CPT/HCPCS: 70450-TC; 72125-TC; 99284-25

== ENCOUNTER 2024-08-29 12:59 | Emergency (ER) | payer OTHER ==
[2024-08-29 13:55] VITALS: BP 148/81; PULSE 63; RESP 20; TEMP 98; BMI 24.9
[2024-08-29] MEDS ORDERED: ACETAMINOPHEN 500 MG TABLET (FP) ONE (14:04)
[2024-08-29] MEDS ORDERED: LIDOCAINE 5% TOPICAL PATCH ONE (14:04)
[2024-08-29] MEDS: LIDOCAINE 5% TOPICAL PATCH TP ONE (14:08)
[2024-08-29] MEDS: ACETAMINOPHEN 500 MG TABLET (FP) PO ONE (14:08)
[2024-08-29] MEDS ORDERED: LIDOCAINE PATCH REMOVAL MC SCH (22:00)
== END 2024-08-29 17:07 | disposition home or self-care (01) ==
LOC: FER 12:59
DX: S20.211A Contusion of right front wall of thorax, initial encounter (principal); W18.30XA Fall on same level, unspecified, initial encounter
CPT/HCPCS: 70450-TC; 71101-TC-RT-FY; 72125-TC; 72170-TC-FY; 73502-TC-RT-FY; 99284-25